=== PATIENT | female | born 1950 | race Caucasian/White ===

== ENCOUNTER → 2017-05-10 | Outpatient (CLI) | payer MEDICARE, OTHER ==
--- NOTE | 2017-05-10 19:22 | XR ---
EXAMINATION TYPE: XR abdomen 1V DATE OF EXAM: 05/10/2017 COMPARISON: 11/04/2016 HISTORY: Constipation TECHNIQUE: 2 views FINDINGS: There is no sign of intestinal obstruction or pneumoperitoneum. There is mild retained feca l material in the colon. There are no pathologic calcifications over the kidneys. I see no sign of a mass. IMPRESSION: Mild constipation similar to old exam. No free air.
== END ==
LOC: RADXRMAIN 17:36
PROVIDERS: ATTEND Internal Medicine
DX: K59.00 Constipation, unspecified (principal)
CPT/HCPCS: 74000

== ENCOUNTER → 2017-06-07 | Outpatient (CLI) | payer MEDICARE, OTHER ==
[2017-06-07 16:22] LABS: Blood Urea Nitrogen 18 mg/dL (7-17); Non-African American GFR(MDRD) >60 (>60 ml/min/1.73 sqM)
--- NOTE | 2017-06-08 07:33 | CT ---
EXAMINATION TYPE: CT angio head neck DATE OF EXAM: 06/07/2017 COMPARISON: NONE HISTORY: Episodes of Entire right side body weakness CT DLP: 429 mGycm CONTRAST: Performed with IV Contrast, patient injected with 65 mL of Omnipaque 350. Combination Contrast CTA cervical carotids and [place] CTA cervical carotids with 3-D recons truction Contrast CTA of the cervical carotids was performed 3-D reconstruction imaging obtained at a separate workstation. Right carotid system: Mild plaque is seen of the right common carotid artery. There is mild plaque a lso noted at the carotid bulb and proximal ICA. No significant diameter reduction. ECA is patent. Right vertebral artery appears unremarkable. Left carotid system: Mild plaque is seen of the left common carotid artery. There is mild plaque als o noted at the carotid bulb and proximal ICS. No significant diameter reduction. ECA is patent. Lef t vertebral artery appears unremarkable. Incidental subcentimeter nodule left thyroid lobe. IMPRESSION: 1. No significant diameter reduction to account for the patient's symptoms. CTA [place] with 3-D reconstruction Contrast CTA of the [place] was performed 3-D reconstruction imaging obtained at a separate workstation. Vertebrobasilar system as well as intracranial portions of the internal carotid arteries and their ma braxton tributaries are patent. I do not see evidence for sizable aneurysm or vascular malformation. Pl ease note MRI provides greater sensitivity and specificity. Visualized brain appears grossly unremar kable. IMPRESSION: 1. No siginificant abnormality.
== END | disposition home or self-care (01) ==
LOC: RADCTMAIN 15:44
PROVIDERS: ATTEND Internal Medicine
DX: R20.9 Unspecified disturbances of skin sensation (principal)
CPT/HCPCS: 82565; 84520; 70496; 70498; 36415; Q9967

== ENCOUNTER → 2017-07-28 | Outpatient (CLI) | payer MEDICARE, OTHER ==
--- NOTE | 2017-07-29 08:13 | MM ---
Reason for exam: screening (asymptomatic). Last mammogram was performed 1 year and 1 month ago. History: Patient is postmenopausal. Family history of breast cancer in paternal grandmother at age 90. Benign ultrasound-guided core biopsy of the right breast, April 07, 2005. Cyst aspiration of the right breast. Core biopsy of the right breast. 2 excisional biopsies of the left breast. Excisional biopsy of the right breast. Took estrogen for 6 months. Took progesterone for 1 year beginning at age 60. Physical Findings: A clinical breast exam by your physician is recommended on an annual basis and results should be correlated with mammographic findings. MG 3D Screening Mammo W/Cad Bilateral CC and MLO view(s) were taken. Prior study comparison: June 22, 2016, bilateral MG 3d diag mammo w/cad ROSAS. June 10, 2015, bilateral MG diagnostic mammo w CAD ROSAS. The breast tissue is heterogeneously dense. This may lower the sensitivity of mammography. Finding: There are stable typically benign calcifications. No significant changes in finding since June 22, 2016 and June 10, 2015. ASSESSMENT: Benign, BI-RAD 2 RECOMMENDATION: Routine screening mammogram of both breasts in 1 year.
== END | disposition home or self-care (01) ==
LOC: RADMAMWWP 10:07
PROVIDERS: ATTEND Obstetrics & Gynecology
DX: Z12.31 Encounter for screening mammogram for malignant neoplasm of breast (principal)
CPT/HCPCS: 77063; G0202

== ENCOUNTER → 2018-04-26 | Outpatient (CLI) | payer MEDICARE, OTHER ==
--- NOTE | 2018-04-26 16:26 | XR ---
Lumbar spine HISTORY: Low back pain, numbness in feet 3 views of the lumbar spine correlated to CT 09/09/2017 Lumbar vertebral bodies show preserved height and alignment. Mild spinal curvature may be positional. There is multilevel spondylosis. Anterolisthesis grade 1 L3-4, only 4 nonrib-bearing vertebral refugio s are present in the lumbar spine. Sclerosis present in the posterior elements of the lower lumbar sp ine. Loss of disc height at the intervertebral levels is noted with associated vacuum phenomenon at m ultiple levels. Vascular calcifications noted incidentally. IMPRESSION: Degenerative disc disease, facet arthropathy, spinal curvature. Correlate with plain film prior to any intervention.
== END ==
LOC: RADXRMAIN 15:20
PROVIDERS: ATTEND Internal Medicine
DX: M51.36 Other intervertebral disc degeneration, lumbar region (principal); M46.96 Unspecified inflammatory spondylopathy, lumbar region; M43.9 Deforming dorsopathy, unspecified
CPT/HCPCS: 72100

== ENCOUNTER → 2018-08-24 | Outpatient (CLI) | payer MEDICARE, OTHER ==
--- NOTE | 2018-08-24 14:40 | MM ---
Reason for exam: screening (asymptomatic). Last mammogram was performed 1 year and 1 month ago. History: Patient is postmenopausal. Family history of breast cancer in paternal grandmother at age 90. Benign ultrasound-guided core biopsy of the right breast, April 07, 2005. Cyst aspiration of the right breast. Core biopsy of the right breast. 2 excisional biopsies of the left breast. Excisional biopsy of the right breast. Took estrogen for 6 months. Took progesterone for 1 year beginning at age 60. Physical Findings: A clinical breast exam by your physician is recommended on an annual basis and results should be correlated with mammographic findings. MG 3D Screening Mammo W/Cad Bilateral CC and MLO view(s) were taken. Prior study comparison: July 28, 2017, bilateral MG 3d screening mammo w/cad. June 22, 2016, bilateral MG 3d diag mammo w/cad ROSAS. The breast tissue is heterogeneously dense. This may lower the sensitivity of mammography. There are benign appearing stable bilateral round oval circumscribed masses. There are benign appearing round calcifications bilaterally. No suspicious abnormality. ASSESSMENT: Benign, BI-RAD 2 RECOMMENDATION: Routine screening mammogram of both breasts in 1 year.
== END | disposition home or self-care (01) ==
LOC: RADMAMWWP 10:37
PROVIDERS: ATTEND Obstetrics & Gynecology
DX: Z12.31 Encounter for screening mammogram for malignant neoplasm of breast (principal); Z80.3 Family history of malignant neoplasm of breast
CPT/HCPCS: 77063; 77067

== ENCOUNTER → 2018-10-27 | Outpatient (CLI) | payer MEDICARE, OTHER ==
--- NOTE | 2018-10-27 14:07 | BD ---
EXAMINATION TYPE: Axial Bone Density DATE OF EXAM: 10/27/2018 COMPARISON: NONE CLINICAL HISTORY: Height: 60.5 Weight: 139.1 FRAX RISK QUESTIONS: Alcohol (3 or more units per day): no Family History (Parent hip fracture): no Glucocorticoids (More than 3mos): no (Ex: prednisone, prednisolone, methylprednisolone, dexamethasone, and hydrocortisone). History of Fracture in Adulthood: no Secondary Osteoporosis: 1. Type 1 Diabetes: no 2. Hyperthyroidism: no 3. Menopause before 45: yes 4. Malnutrition: no 5. Chronic liver disease: no Rheumatoid Arthritis: no Current Tobacco Use: no RISK FACTORS HISTORY OF: Family History of Osteoporosis: yes Active: yes Diet low in dairy products/other sources of calcium: no Postmenopausal woman: age 54-hysterectomy Lost more than 2 inches in height since high school: no MEDICATIONS: amlodipine, lipitor, ambient, vitamins, pro-biotics Additional History: EXAM MEASUREMENTS: Bone mineral densitometry was performed using the [employer]. Bone mineral density as measured about the Lumbar spine is: ----- L1-L4(G/cm2): 1.102 T Score Values are as follows: ----- L2: -1.1 ----- L3: -0.3 ----- L4: 0.0 ----- L1-L4: -0.6 Bone mineral density has: decreased -5.4 % since study of: 06.10.2015 Bone mineral density about the R hip (g/cm2): 0.761 Bone mineral density about the L hip (g/cm2): 0.768 T Score values are as follows: -----R Neck: -2.0 -----L Neck: -1.9 -----R Total: -0.9 -----L Total: -0.9 Bone mineral density has: decreased -3.6 % since study of: 06.10.2015 IMPRESSION: Osteopenia (T Score between -2.5 and -1) femoral neck level in both hips. There is slightly increased risk of fracture and the patient may be considered for treatment. Re-Screen 2-5 years. NOTE: T-SCORE=SD OF THE YOUNG ADULT MEAN.
== END ==
LOC: RADBDWWP 09:00
PROVIDERS: ATTEND Obstetrics & Gynecology
DX: M85.851 Other specified disorders of bone density and structure, right thigh (principal); M85.852 Other specified disorders of bone density and structure, left thigh
CPT/HCPCS: 77080

== ENCOUNTER → 2019-02-13 | Outpatient (CLI) | payer MEDICARE, OTHER ==
--- NOTE | 2019-02-13 14:14 | XR ---
EXAMINATION TYPE: XR chest 2V DATE OF EXAM: 02/13/2019 COMPARISON: NONE TECHNIQUE: PA and lateral views submitted. HISTORY: Cough FINDINGS: The lungs are clear and there is no pneumothorax, pleural effusion, or focal pneumonia. Hypertrophi c and degenerative change of the spine. Postsurgical change involving the shoulders. Biapical pleural thickening. IMPRESSION: 1. No acute process.
== END ==
LOC: RADXRMAIN 13:56
PROVIDERS: ATTEND Internal Medicine
DX: R05 Cough (principal)
CPT/HCPCS: 71046

== ENCOUNTER → 2019-02-23 | Outpatient (CLI) | payer MEDICARE, OTHER ==
--- NOTE | 2019-02-23 10:08 | US ---
EXAMINATION TYPE: US abdomen complete DATE OF EXAM: 02/23/2019 COMPARISON: NONE CLINICAL HISTORY: R94.5 Abnormal results of liver function studies. abn labs, npo EXAM MEASUREMENTS: Liver Length: 15.5 cm Gallbladder Wall: 0.1 cm CBD: 0.4 cm CHD: 0.5 cm Spleen: 7.4 cm Right Kidney: 9.5 x 4.8 x 3.4 cm Left Kidney: 9.9 x 5.1 x 5.1 cm Pancreas: appears echogenic in appearance, tail not well visualized due to overlying bowel gas Liver: Appears echogenic, coarse and heterogenous Gallbladder: wnl Evidence for sonographic Gambino's sign: neg CBD: wnl CHD: wnl Spleen: wnl Right Kidney: wnl Left Kidney: wnl Upper IVC: wnl Abd Aorta: no AAA visualized IMPRESSION: 1. Liver appears somewhat coarsened and echogenic this is a nonspecific finding can be seen with hepa titis, diffuse hepatocellular disease or hepatic steatosis.
== END | disposition home or self-care (01) ==
LOC: RADUSWWP 08:48
PROVIDERS: ATTEND Internal Medicine
DX: R94.5 Abnormal results of liver function studies (principal)
CPT/HCPCS: 76700

== ENCOUNTER → 2019-02-28 | Outpatient (CLI) | payer MEDICARE, OTHER ==
--- NOTE | 2019-02-28 13:09 | XR ---
EXAMINATION TYPE: XR clavicle LT DATE OF EXAM: 02/28/2019 COMPARISON: NONE HISTORY: Pain TECHNIQUE: 2 views submitted FINDINGS: Postsurgical changes suggestive of previous rotator cuff repair. Arthropathy of the AC join t. No acute fracture or dislocation. IMPRESSION: Postsurgical changes with AC joint arthropathy.
--- NOTE | 2019-02-28 13:11 | XR ---
EXAMINATION TYPE: XR ribs LT DATE OF EXAM: 02/28/2019 COMPARISON: NONE HISTORY: Pain TECHNIQUE: 4 views submitted FINDINGS: Arthropathy of the AC joint postsurgical change involving the shoulder. Visualized osseous structures grossly intact. IMPRESSION: No acute displaced rib fracture.
== END ==
LOC: RADXRMAIN 12:36
PROVIDERS: ATTEND Internal Medicine
DX: M12.812 Other specific arthropathies, not elsewhere classified, left shoulder (principal); R29.6 Repeated falls; Z98.890 Other specified postprocedural states

== ENCOUNTER → 2019-03-06 | Outpatient (CLI) | payer MEDICARE, OTHER ==
--- NOTE | 2019-03-07 08:58 | MM ---
Reason for exam: clinical finding. Last mammogram was performed 6 months ago. History: Patient is postmenopausal. Family history of breast cancer in paternal grandmother at age 90. Benign ultrasound-guided core biopsy of the right breast, April 07, 2005. Cyst aspiration of the right breast. Core biopsy of the right breast. 2 excisional biopsies of the left breast. Excisional biopsy of the right breast. Took estrogen for 6 months. Took progesterone for 1 year beginning at age 60. Physical Findings: Nurse did not find any significant physical abnormalities on exam. MG 3D Diag Mammo W/Cad RT CC and ML view(s) were taken of the right breast. Prior study comparison: August 24, 2018, bilateral MG 3d screening mammo w/cad. July 28, 2017, bilateral MG 3d screening mammo w/cad. The breast tissue is heterogeneously dense. This may lower the sensitivity of mammography. There is chronic nodularity in the right breast. These results were verbally communicated with the patient and result sheet given to the patient on 03/06/19. ASSESSMENT: Probably benign, BI-RAD 3 RECOMMENDATION: Ultrasound of the right breast. Manage on a clinical basis with regard to palpable abnormality in right breast. Follow-up diagnostic mammogram of both breasts in 6 months. Back on schedule for August 2019.
--- NOTE | 2019-03-07 08:59 | USB ---
Reason for exam: clinical finding. History: Patient is postmenopausal. Family history of breast cancer in paternal grandmother at age 90. Benign ultrasound-guided core biopsy of the right breast, April 07, 2005. Cyst aspiration of the right breast. Core biopsy of the right breast. 2 excisional biopsies of the left breast. Excisional biopsy of the right breast. Took estrogen for 6 months. Took progesterone for 1 year beginning at age 60. US Breast RT Right complete breast ultrasound includes all four quadrants, the retroareolar region and axilla. Finding demonstrates a 6 x 4 x 7mm oval, cystic lesion at 2 o'clock and a 3 x 3 x 3mm oval, cystic lesion at 11 o'clock. These results were verbally communicated with the patient and result sheet given to the patient on 03/06/19. ASSESSMENT: Probably benign, BI-RAD 3 RECOMMENDATION: Ultrasound of the right breast in 6 months.
== END ==
LOC: RADMAMWWP 12:52
PROVIDERS: ATTEND Family Medicine
DX: N63.10 Unspecified lump in the right breast, unspecified quadrant (principal); N64.4 Mastodynia
CPT/HCPCS: 77065; 76641; G0279; 77061

== ENCOUNTER → 2019-03-10 | Outpatient (CLI) | payer MEDICARE, OTHER ==
--- NOTE | 2019-03-15 10:12 | P.ARTDOP ---
Arterial Doppler LOWER EXTREMITY ARTERIAL DOPPLER: DATE OF SERVICE: 03/10/2019 Reason for study: Bilateral leg pain. Doppler waveforms: Multiphasic bilaterally throughout. Pulse volume recording: []. Pressure gradients: Mild gradient across the knee on the right. Ankle-brachial indices: Greater than 1 on the left and 0.83 on the right. Toe pressures: [] on the right, [] on the left Impression: Normal study on the left with possible mild right SFA disease. Does not correlate as a cause for patient's symptoms..
== END | disposition home or self-care (01) ==
LOC: RADUSWWP 12:06
PROVIDERS: ATTEND Internal Medicine
DX: I73.9 Peripheral vascular disease, unspecified (principal)
CPT/HCPCS: 93923

== ENCOUNTER → 2019-04-17 | Outpatient (CLI) | payer MEDICARE, OTHER ==
--- NOTE | 2019-04-18 11:27 | MM ---
Reason for exam: clinical finding. Last mammogram was performed 1 month ago. History: Patient is postmenopausal. Family history of breast cancer in paternal grandmother at age 90. Benign ultrasound-guided core biopsy of the right breast, April 07, 2005. Cyst aspiration of the right breast. Core biopsy of the right breast. 2 excisional biopsies of the left breast. Excisional biopsy of the right breast. Took estrogen for 6 months. Took progesterone for 1 year beginning at age 60. Physical Findings: Nurse did not find any significant physical abnormalities on exam. MG 3D Diag Mammo W/Cad LT CC, MLO, and XCCL view(s) were taken of the left breast. Prior study comparison: March 06, 2019, right breast MG 3d diag mammo w/cad RT. August 24, 2018, bilateral MG 3d screening mammo w/cad. The breast tissue is heterogeneously dense. This may lower the sensitivity of mammography. Post therapy change on the left. These results were verbally communicated with the patient and result sheet given to the patient on 04/17/19. ASSESSMENT: Incomplete: need additional imaging evaluation, BI-RAD 0 RECOMMENDATION: Ultrasound of the left breast. (for pain lateral left breast)
--- NOTE | 2019-04-18 11:29 | USB ---
Reason for exam: additional evaluation requested from abnormal screening. History: Patient is postmenopausal. Family history of breast cancer in paternal grandmother at age 90. Benign ultrasound-guided core biopsy of the right breast, April 07, 2005. Cyst aspiration of the right breast. Core biopsy of the right breast. 2 excisional biopsies of the left breast. Excisional biopsy of the right breast. Took estrogen for 6 months. Took progesterone for 1 year beginning at age 60. US Breast Limited LT Left limited breast ultrasound including focal area of concern, retroareolar and axilla demonstrates a 1.0 x 1.2 x 0.5cm oval node, benign appearing at the axilla. [place] of dense tissue noted. No suspicious finding. These results were verbally communicated with the patient and result sheet given to the patient on 04/17/19. ASSESSMENT: Benign, BI-RAD 2 RECOMMENDATION: Follow-up diagnostic mammogram of both breasts in 4 months. Back on schedule for August 2019.
== END | disposition home or self-care (01) ==
LOC: RADMAMWWP 11:24
PROVIDERS: ATTEND Family Medicine
DX: N63.20 Unspecified lump in the left breast, unspecified quadrant (principal); R92.8 Other abnormal and inconclusive findings on diagnostic imaging of breast
CPT/HCPCS: 77065; 76642; G0279; 77061

== ENCOUNTER → 2019-08-29 | Outpatient (CLI) | payer MEDICARE, OTHER ==
--- NOTE | 2019-08-29 12:00 | MM ---
Reason for exam: follow-up at short interval from prior study. Last mammogram was performed 4 months ago. History: Patient is postmenopausal. Family history of breast cancer in paternal grandmother at age 90. Benign ultrasound-guided core biopsy of the right breast, April 07, 2005. Cyst aspiration of the right breast. Core biopsy of the right breast. 2 excisional biopsies of the left breast. Excisional biopsy of the right breast. Took estrogen for 6 months. Took progesterone for 1 year beginning at age 60. Physical Findings: Nurse Summary: 1cm nodule in the right breast at 11 o'clock and a 1cm nodule in the left breast at 9 o'clock (nurse TM). MG 3D Diag Mammo W/Cad ROSAS Bilateral CC and MLO view(s) were taken. Prior study comparison: April 17, 2019, left breast MG 3d diag mammo w/cad LT. March 06, 2019, right breast MG 3d diag mammo w/cad RT. August 24, 2018, bilateral MG 3d screening mammo w/cad. July 28, 2017, bilateral MG 3d screening mammo w/cad. June 22, 2016, bilateral MG 3d diag mammo w/cad ROSAS. The breast tissue is heterogeneously dense. This may lower the sensitivity of mammography. There is a 4mm mass right upper outer quadrant middle depth 4cm from nipple stable from prior other right upper inner quadrant circumscribed masses are stable back to 2016. Left upper inner quadrant 5 x 4mm mass at middle depth on CC 47/58 and MLO 14/72. Post excisional change bilaterally. These results were verbally communicated with the patient and result sheet given to the patient on 08/29/19. ASSESSMENT: Incomplete: need additional imaging evaluation, BI-RAD 0 RECOMMENDATION: Ultrasound of both breasts.
--- NOTE | 2019-08-29 12:04 | USB ---
Reason for exam: additional evaluation requested from prior study. History: Patient is postmenopausal. Family history of breast cancer in paternal grandmother at age 90. Benign ultrasound-guided core biopsy of the right breast, April 07, 2005. Cyst aspiration of the right breast. Core biopsy of the right breast. 2 excisional biopsies of the left breast. Excisional biopsy of the right breast. Took estrogen for 6 months. Took progesterone for 1 year beginning at age 60. US Breast BILAT Right complete breast ultrasound includes all four quadrants, the retroareolar region and axilla. Finding demonstrates a 0.2 x 0.1 x 0.2cm calcification at 2 o'clock, a 0.6 x 0.4 x 0.7cm mixed lesion at 2 o'clock, corresponds with mammogram, complicated cyst, a 0.4 x 0.3 x 0.5cm lesion too small to characterize at 10 o'clock and a 0.2 x 0.1 x 0.2cm lesion too small to characterize at 11 o'clock. Left complete breast ultrasound includes all four quadrants, the retroareolar region and axilla. Finding demonstrates a 0.3 x 0.3 x 0.4cm lesion too small to characterize at 8 o'clock and a 0.5 x 0.3 x 0.4cm mixed lesion at 11 o'clock, solid, biopsy recommended, corresponds with mammogram. These results were verbally communicated with the patient and result sheet given to the patient on 08/29/19. ASSESSMENT: Suspicious, BI-RAD 4 RECOMMENDATION: Ultrasound core biopsy of the left breast. (11 o'clock) Called office with mammographic findings and has scheduled an appointment for the patient for 09/26/19 at 9:[address] Lucas. Biopsy scheduled for 09/19/19 at 12:20. PRELIMINARY REPORT CALLED AND FAXED TO DR. LUCAS ON 08/29/19.
== END | disposition home or self-care (01) ==
LOC: RADMAMWWP 09:35
PROVIDERS: ATTEND Family Medicine
DX: R92.8 Other abnormal and inconclusive findings on diagnostic imaging of breast (principal)
CPT/HCPCS: 77066; 76641; G0279; 77062

== ENCOUNTER → 2019-09-19 | Day surgery (SDC) | payer MEDICARE, OTHER ==
[2019-09-19 11:56] VITALS: RESP 12; TEMP 98.2
[2019-09-19 12:48] VITALS: BP 145/87; PULSE 77
--- NOTE | 2019-09-19 12:56 | USB ---
EXAMINATION TYPE: US biopsy breast VAD LT, MG diagnostic mammo LT wo CAD DATE OF EXAM: 09/19/2019 CLINICAL HISTORY: R92.8 ABN MAMMO. Abnormal ultrasound TECHNIQUE: Ultrasound guided core biopsy of left breast with clip placement and follow-up diagnostic two-view mammogram. COMPARISON: Prior ultrasound and mammogram August 29, 2019 and older studies. FINDINGS: The procedure of ultrasound guided core biopsy was explained to the patient. Benefits, alternatives, and risks were discussed. An informed consent was then obtained. The patient was placed in supine positioning for imaging and for the procedure. Preprocedure ultrasound redemonstrates 4-5 mm oval well-circumscribed hypoechoic lesion 11:00 position left breast. The overlying skin was prepped and draped in usual sterile fashion. Lidocaine is used as anesthetic into the skin and subcutaneous tissue up to area of concern in the left breast. Lidocaine with epinephrine is used as anesthetic to the deeper tissue. Under ultrasound guidance, a 12-gauge vacuum assisted biopsy gun device was used to obtain 4 core samples. Following this, a biopsy clip was left at the site lesion was felt present. The patient tolerated the procedure well without any immediate complication. The patient was kept in the radiology department for short stay after the procedure and then discharged home in stable condition. Postprocedure mammogram shows clip to believed to correspond to lesions seen best on CC projection. IMPRESSION: Successful, uncomplicated ultrasound guided core biopsy of area of concern in the left breast, full pathology results to follow. Low index of suspicion noted at time of procedure. Pathology Results: Benign LEFT BREAST, 11:00, ULTRASOUND GUIDED CORE BIOPSY: Nodular scar with fat necrosis, inflammation and features suggestive of attenuated cyst wall. Negative for malignancy. Recommendation Follow up ultrasound of the left breast in 6 months. MARYJOD
== END ==
LOC: RADUSWWP 11:15
PROVIDERS: ATTEND Family Medicine
DX: N64.1 Fat necrosis of breast (principal); L90.5 Scar conditions and fibrosis of skin; R92.8 Other abnormal and inconclusive findings on diagnostic imaging of breast; Z88.5 Allergy status to narcotic agent; Z88.2 Allergy status to sulfonamides
CPT/HCPCS: 88305; 77065; 19083; A4648; J2001

== ENCOUNTER 2020-04-19 12:31 | Emergency (ER) | payer MEDICARE, OTHER ==
[2020-04-19] MEDS ORDERED: SODIUM CHLORIDE 0.9% 1,000 ML IV STA (13:01)
--- NOTE | 2020-04-19 13:11 | ED ---
General Adult HPI - General Chief complaint: Fever Stated complaint: Fever,body aches, nausea Time Seen by Provider: 04/19/20 12:39 Source: patient, RN notes reviewed Mode of arrival: ambulatory Limitations: no limitations - History of Present Illness Initial comments: 69-year-old female with a past medical history of hyperlipidemia, hypertension presents to the emergency department for a complete a fever. Patient states she has had body aches for about 3 days. States that today she checked her temperature and it was T max 100.4. Patient that she called her doctor and they did not want to see her in the office because of the fever so sent her to the emergency room. Patient has many vague symptoms. These include body aches throughout her whole body. Patient admits to slight dry cough as well as slight sore throat. Patient admits to mild abdominal pain for the past couple weeks. Denies nausea or vomiting.Patient has no other complaints at this time including shortness of breath, chest pain, nausea or vomiting, headache, or visual kaylynn nges. - Related Data Home Medications Medication Instructions Recorded Confirmed Latanoprost Ophth [Xalatan 0.005%] 1 drops BOTH EYES HS 10/16/15 09/19/19 amLODIPine [Norvasc] 5 mg PO DAILY 10/16/15 09/19/19 Atorvastatin [Lipitor] 10 mg PO DAILY 08/31/19 09/19/19 Simvastatin 40 mg PO DAILY 08/31/19 09/19/19 Zolpidem [Ambien] 5 mg PO HS PRN 08/31/19 09/19/19 Allergies Allergy/AdvReac Type Severity Reaction Status Date / Time hydromorphone HCl Allergy Nausea & Verified 04/19/20 12:38 [From Dilaudid] Vomiting sulfamethoxazole Allergy Rash/Hives Verified 04/19/20 12:38 [From Bactrim] trimethoprim [From Bactrim] Allergy Rash/Hives Verified 04/19/20 12:38 Review of Systems ROS Statement: Those systems with pertinent positive or pertinent negative responses have been documented in the HPI. ROS Other: All systems not noted in ROS Statement are negative. Past Medical History Past Medical History: Hyperlipidemia, Hypertension Additional Past Medical History / Comment(s): pneumothorax History of Any Multi-Drug Resistant Organisms: None Reported Past Surgical History: Breast Surgery, Hysterectomy, Orthopedic Surgery Additional Past Surgical History / Comment(s): Rectocele, cystocele. Hx. Benign excisional bx bilateral breasts, core bx, cyst aspirations Past Anesthesia/Blood Transfusion Reactions: Previous Problems w/ Anesthesia, Postoperative Nausea & Vomiting (PONV) Past Psychological History: No Psychological Hx Reported Smoking Status: Never smoker Past Alcohol Use History: Daily, Occasional Past Drug Use History: None Reported General Exam Limitations: no limitations General appearance: alert, in no apparent distress Head exam: Present: atraumatic, normocephalic, normal inspection Eye exam: Present: normal appearance, PERRL, EOMI. Absent: scleral icterus, conjunctival injection, periorbital swelling ENT exam: Present: normal exam, mucous membranes moist Neck exam: Present: normal inspection, full ROM. Absent: tenderness, meningismus, lymphadenopathy Respiratory exam: Present: normal lung sounds bilaterally. Absent: respiratory distress, wheezes, rales, rhonchi, stridor Cardiovascular Exam: Present: regular rate, normal rhythm, normal heart sounds. Absent: systolic murmur, diastolic murmur, rubs, gallop, clicks GI/Abdominal exam: Present: soft, tenderness (Mild tenderness left lower quadrant), normal bowel sounds. Absent: distended, guarding, rebound, rigid Neurological exam: Present: alert Course Vital Signs 04/19/20 04/19/20 12:34 14:31 Temperature 99.6 F 98.5 F Pulse Rate 94 88 Respiratory 18 17 Rate Blood Pressure 152/88 140/87 O2 Sat by Pulse 98 98 Oximetry Medical Decision Making - Medical Decision Making Vitals are stable. Patient has been afebrile throughout her stay in the emergency room. She did not take Motrin or Tylenol today and was not given Motrin or Tylenol in the emergency room. Physical exam does reveal minimal left lower quadrant tenderness without any other abdominal tenderness. No neck stiffness or headache. Full range motion of all limbs. No rashes. CBC CMP unremarkable. Urinalysis does not show any evidence of infection. Chest x-ray shows no acute process. CT abdomen and pelvis with contrast shows colonic diverticulosis without evidence of diverticulitis. No significant new or acute findings to account for patient's clinical symptoms. Patient was given fluids and morphine and is feeling somewhat better although still achy all over. Patient does not have any specific symptoms besides achiness in pain all over. At this time patient is stable for discharge home however I did discuss strep return parameters. Blood culture and coronavirus are pending. Patient is agreeable to return if she has any worsening symptoms. - Lab Data Result diagrams: 04/19/20 14:15 04/19/20 14:15 Lab Results 04/19/20 04/19/20 04/19/20 Range/Units 14:15 14:15 14:15 WBC 10.6 (3.8-10.6) k/uL RBC 4.46 (3.80-5.40) m/uL Hgb 14.0 (11.4-16.0) gm/dL Hct 41.2 (34.0-46.0) % MCV 92.3 (80.0-100.0) fL MCH 31.4 (25.0-35.0) pg MCHC 34.0 (31.0-37.0) g/dL RDW 12.4 (11.5-15.5) % Plt Count 242 (150-450) k/uL Neutrophils % 88 % Lymphocytes % 7 % Monocytes % 3 % Eosinophils % 1 % Basophils % 1 % Neutrophils # 9.2 H (1.3-7.7) k/uL Lymphocytes # 0.7 L (1.0-4.8) k/uL Monocytes # 0.3 (0-1.0) k/uL Eosinophils # 0.1 (0-0.7) k/uL Basophils # 0.1 (0-0.2) k/uL Sodium 139 (137-145) mmol/L Potassium 4.7 (3.5-5.1) mmol/L Chloride 106 (98-107) mmol/L Carbon Dioxide 23 (22-30) mmol/L Anion Gap 10 mmol/L BUN 14 (7-17) mg/dL Creatinine 0.67 (0.52-1.04) mg/dL Est GFR (CKD-EPI)AfAm >90 (>60 ml/min/1.73 sqM) Est GFR (CKD-EPI)NonAf 90 (>60 ml/min/1.73 sqM) Glucose 138 H (74-99) mg/dL Plasma Lactic Acid Jhoan 1.1 (0.7-2.0) mmol/L Calcium 9.7 (8.4-10.2) mg/dL Total Bilirubin 0.5 (0.2-1.3) mg/dL AST 25 (14-36) U/L ALT 19 (4-34) U/L Alkaline Phosphatase 78 (38-126) U/L Total Protein 7.5 (6.3-8.2) g/dL Albumin 4.8 (3.5-5.0) g/dL Urine Color Urine Appearance (Clear) Urine pH (5.0-8.0) Ur Specific Alleman (1.001-1.035) Urine Protein (Negative) Urine Glucose (UA) (Negative) Urine Ketones (Negative) Urine Blood (Negative) Urine Nitrite (Negative) Urine Bilirubin (Negative) Urine Urobilinogen (<2.0) mg/dL Ur Leukocyte Esterase (Negative) 04/19/20 Range/Units 14:15 WBC (3.8-10.6) k/uL RBC (3.80-5.40) m/uL Hgb (11.4-16.0) gm/dL Hct (34.0-46.0) % MCV (80.0-100.0) fL MCH (25.0-35.0) pg MCHC (31.0-37.0) g/dL RDW (11.5-15.5) % Plt Count (150-450) k/uL Neutrophils % % Lymphocytes % % Monocytes % % Eosinophils % % Basophils % % Neutrophils # (1.3-7.7) k/uL Lymphocytes # (1.0-4.8) k/uL Monocytes # (0-1.0) k/uL Eosinophils # (0-0.7) k/uL Basophils # (0-0.2) k/uL Sodium (137-145) mmol/L Potassium (3.5-5.1) mmol/L Chloride (98-107) mmol/L Carbon Dioxide (22-30) mmol/L Anion Gap mmol/L BUN (7-17) mg/dL Creatinine (0.52-1.04) mg/dL Est GFR (CKD-EPI)AfAm (>60 ml/min/1.73 sqM) Est GFR (CKD-EPI)NonAf (>60 ml/min/1.73 sqM) Glucose (74-99) mg/dL Plasma Lactic Acid Jhoan (0.7-2.0) mmol/L Calcium (8.4-10.2) mg/dL Total Bilirubin (0.2-1.3) mg/dL AST (14-36) U/L ALT (4-34) U/L Alkaline Phosphatase (38-126) U/L Total Protein (6.3-8.2) g/dL Albumin (3.5-5.0) g/dL Urine Color Yellow Urine Appearance Clear (Clear) Urine pH 7.0 (5.0-8.0) Ur Specific Alleman 1.013 (1.001-1.035) Urine Protein Negative (Negative) Urine Glucose (UA) Negative (Negative) Urine Ketones Negative (Negative) Urine Blood Negative (Negative) Urine Nitrite Negative (Negative) Urine Bilirubin Negative (Negative) Urine Urobilinogen <2.0 (<2.0) mg/dL Ur Leukocyte Esterase Negative (Negative) Disposition Clinical Impression: Generalized body aches Disposition: HOME SELF-CARE Condition: Good Instructions (If sedation given, give patient instructions): Fever in Adults (ED) Additional Instructions: Please take Motrin and Tylenol for body aches/fever. Follow-up with primary care in 1-2 days. Follow up on culture results. If you have any worsening symptoms such as worsening pain return here to the emergency room. Is patient prescribed a controlled substance at d/c from ED?: No Referrals: Hui Macias MD [Primary Care Provider] - 1-2 days Time of Disposition: 16:03
[2020-04-19] MEDS ORDERED: HYDROmorphone 0.5 MG/0.5 ML SYRINGE IVP STA (14:18)
[2020-04-19] MEDS ORDERED: ONDANSETRON 4 MG/2 ML VIAL IVP STA (14:18)
[2020-04-19 14:32] VITALS: BP 140/87; PULSE 88; RESP 17; TEMP 98.5
[2020-04-19 14:39] LABS: Basophils # (A) 0.1 k/uL (0-0.2); Basophils % (A) 1 %; Eosinophils # (A) 0.1 k/uL (0-0.7); Eosinophils % (A) 1 %; HCT 41.2 % (34.0-46.0); Lymphocytes # (A) 0.7 k/uL (1.0-4.8); Lymphocytes % (A) 7 %; MCH 31.4 pg (25.0-35.0); MCV 92.3 fL (80.0-100.0); Mean Platelet Volume 6.9; Monocytes # (A) 0.3 k/uL (0-1.0); Monocytes % (A) 3 %; Neutrophils # (A) 9.2 k/uL (1.3-7.7); Neutrophils % (A) 88 %; Platelet Count 242 k/uL (150-450); RBC 4.46 m/uL (3.80-5.40); RDW 12.4 % (11.5-15.5); WBC 10.6 k/uL (3.8-10.6)
[2020-04-19 14:45] LABS: Appearance,Urine Clear (Clear); Bilirubin,Urine Negative (Negative); Blood,Urine Negative (Negative); Color,Urine Yellow; Glucose,Urine (UA) Negative (Negative); Ketones,Urine Negative (Negative); Leukocyte Esterase,Urine Negative (Negative); Nitrite,Urine Negative (Negative); Protein,Urine Negative (Negative); Specific Gravity,Urine 1.013 (1.001-1.035); Urobilinogen,Urine <2.0 mg/dL (<2.0)
[2020-04-19 14:47] LABS: ALT 19 U/L (4-34); AST 25 U/L (14-36); African American GFR (CKD) >90 (>60 ml/min/1.73 sqM); Albumin 4.8 g/dL (3.5-5.0); Alkaline Phosphatase 78 U/L (38-126); Anion Gap 10 mmol/L; Blood Urea Nitrogen 14 mg/dL (7-17); Calcium 9.7 mg/dL (8.4-10.2); Carbon Dioxide 23 mmol/L (22-30); Chloride 106 mmol/L (98-107); Glucose 138 mg/dL (74-99); Non-African American GFR(CKD) 90 (>60 ml/min/1.73 sqM); Potassium 4.7 mmol/L (3.5-5.1); Sodium 139 mmol/L (137-145); Total Bilirubin 0.5 mg/dL (0.2-1.3); Total Protein 7.5 g/dL (6.3-8.2)
[2020-04-19] MEDS ORDERED: MORPHINE SULFATE 4 MG/ML SYRINGE IVP STA (14:51)
--- NOTE | 2020-04-19 15:01 | XR ---
EXAMINATION TYPE: XR chest 2V DATE OF EXAM: 04/19/2020 COMPARISON: NONE TECHNIQUE: PA and lateral views submitted. HISTORY: Fever FINDINGS: The lungs are clear and there is no pneumothorax, pleural effusion, or focal pneumonia. Postsurgica l change overlying the shoulder biapical pleural thickening. No overt failure. Hypertrophic and degen erative change of the spine. IMPRESSION: 1. No acute process.
--- NOTE | 2020-04-19 15:34 | CT ---
EXAMINATION TYPE: CT abdomen pelvis w con DATE OF EXAM: 04/19/2020 HISTORY: Mid Abdominal pain with fever and bowel changes CT DLP: 711mGycm Automated Exposure Control for Dose Reduction was Utilized. CONTRAST: CT scan of the abdomen and pelvis is performed without oral but with IV Contrast, patient injected wi th 100 mL of Isovue 300. COMPARISON: CT abdomen September 09, 2017 FINDINGS: LUNG BASES: No significant abnormality is appreciated. LIVER/GB: No significant abnormality is appreciated. PANCREAS: No significant abnormality is seen. SPLEEN: No significant abnormality is seen. ADRENALS: Slight nodular thickening left adrenal gland favoring benign lipid rich hyperplasia is stab le. KIDNEYS: No significant abnormality is seen. BOWEL: Slightly suboptimal evaluation of bowel without enteric contrast. Diverticula in the left and sigmoid colon are present. No convincing CT evidence for acute diverticulitis normal-appearing append ix incidentally seen from the cecum in the right upper pelvis. No suspicious small or large bowel dil atation. UTERUS/ADNEXA: Uterus surgically absent or markedly atrophic. LYMPH NODES: No greater than 1cm abdominal or pelvic lymph nodes are appreciated. OSSEOUS STRUCTURES: Multilevel vacuum disc phenomenon and disc space narrowing greatest at L2-L3 and L5-S1 levels. OTHER: Moderate atherosclerotic change in atherosclerotic abdominal aorta. IMPRESSION: Colonic diverticulosis without convincing CT evidence for acute diverticulitis. No signif icant new or acute finding is seen to account for patient's clinical symptoms.
== END 2020-04-19 17:04 | disposition home or self-care (01) ==
LOC: EC 12:31
DX: K57.30 Diverticulosis of large intestine without perforation or abscess without bleeding (principal); R10.814 Left lower quadrant abdominal tenderness; R50.9 Fever, unspecified; R05 Cough; E78.5 Hyperlipidemia, unspecified; I10 Essential (primary) hypertension; Z79.899 Other long term (current) drug therapy; Z88.5 Allergy status to narcotic agent; Z88.2 Allergy status to sulfonamides; Z88.1 Allergy status to other antibiotic agents; Z20.828 Contact with and (suspected) exposure to other viral communicable diseases
CPT/HCPCS: 36415; 80053; 83605; 85025; 81003; 87040; 71046; 74177; 99284; 96374; 96375 ×2; 96361; U0003; J2270; J2405; Q9967

== ENCOUNTER → 2020-04-24 | Outpatient (CLI) | payer MEDICARE, OTHER ==
--- NOTE | 2020-04-25 10:32 | USB ---
Reason for exam: follow-up at short interval from prior study. History: Patient is postmenopausal. Family history of breast cancer in paternal grandmother at age 90. Benign US biopsy breast VAD LT of the left breast, September 19, 2019. Benign ultrasound-guided core biopsy of the right breast, April 07, 2005. Cyst aspiration of the right breast. Core biopsy of the right breast. 2 excisional biopsies of the left breast. Excisional biopsy of the right breast. Took estrogen for 6 months. Took progesterone for 1 year beginning at age 60. Physical Findings: Nurse did not find any significant physical abnormalities on exam. US Breast Limited LT Left limited breast ultrasound including focal area of concern, retroareolar and axilla demonstrates no cystic or solid lesion seen. These results were verbally communicated with the patient and result sheet given to the patient on 04/24/20. ASSESSMENT: Benign, BI-RAD 2 RECOMMENDATION: Routine screening mammogram of both breasts in 4 months. Back on schedule for August 2020.
== END | disposition home or self-care (01) ==
LOC: RADUSWWP 09:28
PROVIDERS: ATTEND Internal Medicine
DX: R92.8 Other abnormal and inconclusive findings on diagnostic imaging of breast (principal)

== ENCOUNTER → 2020-04-24 | Outpatient (CLI) | payer MEDICARE, OTHER ==
[2020-04-24 10:49] VITALS: BP 136/77; PULSE 75; RESP 16
--- NOTE | 2020-04-24 11:43 | P.PAINCN ---
History of Present Illness - Reason for Consult Consult date: 04/24/20 Low back pain Requesting physician: Hui Macias - Chief Complaint Low back pain and right hip pain - History of Present Illness 69-year-old female who presents to [facility] for your in pain clinic at the request of Dr. Macias. She is a chief complaint of low back pain and right hip pain as well as numbness and tingling in her bilateral lower extremities. She's had bilateral lower extremity numbness and tingling for over 5 years. She vaguely recalls having some sort of procedure that did help alleviate some of the pain. She does not recall pros and epidural injection. However acutely over the past few month she's developed pain over her right low back buttock area and at times radiating into her groin and anterior quadricep. She denies any numbness or tingling sensation. Describes it as a throbbing aching pain worse with movement and activity and slightly improved with rest. Pain typically in that area as a 5-7 out of 10 in severity depending on her activity level. She's been taking [id number] Motrin with very minimal relief. With regards to her lower extremity digit numbness and tingling in her right is worse than left. She does not recall any inciting event that led to this issue. She did have a fall some years back where she was hospitalized for multiple rib fractures on her right side. She denies any bowel or bladder incontinence or saddle anesthesia Review of Systems Review of Systems 1. Constitutional: No chills , no fever , no night sweats , no change of appetite, no lethargy 2. Ears: No ear ache, no ear discharge , no change in hearing 3. Nose, Mouth ,Throat; No bleeding gums, no sore throat , no epistaxis , no hoarseness , no voice change 4. Cardiovascular: Denies chest pain, no palpitation , no paroxysmal nocturnal dyspnea , no leg edema 5. Respiratory: Denies cough , no dyspnea , no hemoptysis , no sleep apnea, no wheezing 6. Gastrointestinal: No abdominal pain , no bloating , no change in bowel habits , no coffee-ground emesis , No melena , no jaundice , no nausea , no vomiting 7. Genitourinary: No hematuria , no discharge 8. Musculoskeletal: As per HPI 9. Neurological: No ataxia , no aphasia ,no balance difficulties, no change in visions , no change in speech , no tremor . 10. Psychatric: depression , no suicidal ideation, 11. Hematologic: No easy bleeding, no easy brusing. 12. Integumentary: No brttle nails, no change hair , no hirsutism no depigmentation , no foot/leg ulcers . Past Medical History Past Medical History: Chest Pain / Angina, GERD/Reflux, Hyperlipidemia, Hypertension Additional Past Medical History / Comment(s): fx ribs & pneumothorax(2015 from fall), incontinence stool, diverticulosis, thyroid nodules., hx rich-acuña. , feet fall asleep-mostly left foot and it is painful. History of Any Multi-Drug Resistant Organisms: None Reported Past Surgical History: Breast Surgery, Hysterectomy Additional Past Surgical History / Comment(s): states Hysterectomy with mesh and infection and had to have Rectocele & cystocele at [facility]. Benign excisional bx bilateral breasts, core bx, cyst aspirations, dayami rotator cuff surgery. Past Anesthesia/Blood Transfusion Reactions: Previous Problems w/ Anesthesia, Postoperative Nausea & Vomiting (PONV) Past Psychological History: Anxiety Smoking Status: Never smoker Past Alcohol Use History: Daily Additional Past Alcohol Use History / Comment(s): Pt. states drinks a glass of wine daily with dinner. Past Drug Use History: None Reported - Past Family History Mother Family Medical History: No Reported History Medications and Allergies Home Medications Medication Instructions Recorded Confirmed Type Latanoprost Ophth [Xalatan 0.005%] 1 drops BOTH EYES HS 10/16/15 04/24/20 History amLODIPine [Norvasc] 5 mg PO DAILY 10/16/15 04/24/20 History Simvastatin 40 mg PO PC-LUNCH 08/31/19 04/24/20 History Zolpidem [Ambien] 5 mg PO HS PRN 08/31/19 04/24/20 History Acetaminophen [Tylenol Extra 1,000 mg PO DIRECTED 04/22/20 04/24/20 History Strength] Ascorbic Acid [Vitamin C] 500 mg PO DAILY 04/22/20 04/24/20 History Aspirin/Acetaminophen/Caffeine 1 each PO ONETIME PRN 04/22/20 04/24/20 History [Excedrin Extra Strength Caplet] Cholecalciferol [Vitamin D3 (25 2,000 unit PO DAILY 04/22/20 04/24/20 History Mcg = 1000 Iu)] Ibuprofen 200 mg PO Q8H PRN 04/22/20 04/24/20 History L.acidoph,Paracasei, B.lactis 1 each PO DAILY 04/22/20 04/24/20 History [Probiotic] Lisinopril 20 mg PO DAILY 04/22/20 04/24/20 History Omeprazole 20 mg PO AC-BRKFST 04/22/20 04/24/20 History Ubidecarenone [Co Q-10] 200 mg PO DAILY 04/22/20 04/24/20 History Vitamin E 450 unit PO DAILY 04/22/20 04/24/20 History Allergies Allergy/AdvReac Type Severity Reaction Status Date / Time hydromorphone HCl Allergy Nausea & Verified 04/24/20 10:37 [From Dilaudid] Vomiting sulfamethoxazole Allergy Rash/Hives Verified 04/24/20 10:37 [From Bactrim] trimethoprim [From Bactrim] Allergy Rash/Hives Verified 04/24/20 10:37 Physical Exam Vitals: Vital Signs Pulse Resp BP Pulse Ox 04/24/20 10:39 75 16 136/77 97 Gen: WDWN, AAOx3, NAD HEENT: NCAT, EOMI, hearing grossly normal Pulm: resp unlabored Abd: soft, NT, ND Neck: supple, trachea midline ROM in flexion cervical spine: Normal ROM in extension cervical spine: Normal Cervical paravertebral tenderness: Normal Cervical Facet tenderness: Negative Spurling's: Negative ROM in flexion lumbar spine: No pain with flexion ROM in extension lumbar spine: Pain with extension of -10 Lumbar paravertebral tenderness: Mild tenderness to palpation along the lumbar paraspinal muscles Facet loading: + Right SI joint tenderness: + + Right Umesh's test: + + Right Straight leg raise: Negative bilateral Neuro: 5 out of 5 upper and lower extremity muscle strength in biceps, triceps, deltoid, quadriceps, gastrocnemius. Reflexes intact patellar, tricep, bicep 2 out of 2. Psychiatric: Mood and affect appropriate, negative would L signs Gait: Normal gait, patient transitions with slight pain on the right, no and ambulatory device required. Results Results: MRI lumbar spine: 1. At the L2-3 level there is posterior disc bulge suggestion of a thin broad- based disc herniation. There is 25% impingement upon the neuroforamina bilaterally. 2. At L3 4 there is very mild posterior disc bulge with mild neuroforaminal stenosis bilaterally. At L4-L5 there is grade 1 spondylosis thesis appreciated. With moderate neural foraminal stenosis in the left and mild on the right. 3. At L5-S1 there is a thin broad-based disc herniation slightly more on the left mild neuroforaminal stenosis bilaterally. Assessment and Plan Assessment: 1. Lumbar neural foraminal stenosis 2. Right lumbosacral spondylosis 3. Right sacroiliitis 4. Lumbar spondylosis without myelopathy 5. Lumbar degenerative disc disease Plan: 1. Medication: continue [id number] medication rotating between NSAIDs and acetaminophen. 2. Procedures: I discussed both lumbar epidural steroid injections as well as right sacroiliac joint injection. Given the patient's acute symptoms and right buttock pain rating to her groin we decided to proceed with right sacroiliac joint injection at the next available date. Patient would like to address the numbness and tingling in her bilateral lower extremity digits. We'll likely proceed with epidural steroid injection L5-S1 interspace in the future. I discussed the risks and benefits of the procedure which include infection, bleeding, rare nerve injury. 3. Disposition: Patient will follow up for procedure right sacral iliac joint injection at next available date. Time with Patient: Greater than 30 PQRS Measure Charge Sheet PQRS Narrative: Smoking Status Never smoker Blood Pressure 136/77 Pain Intensity [Right Back] 5 Scale Used Numeric (1 - 10) Hx Alcohol Use (MH) Yes Home Medications: Ambulatory Orders Latanoprost Ophth [Xalatan 0.005%] 1 drops BOTH EYES HS 10/16/15 amLODIPine [Norvasc] 5 mg PO DAILY 10/16/15 Simvastatin 40 mg PO PC-LUNCH 08/31/19 Zolpidem [Ambien] 5 mg PO HS PRN 08/31/19 Acetaminophen [Tylenol Extra Strength] 1,000 mg PO DIRECTED 04/22/20 Ascorbic Acid [Vitamin C] 500 mg PO DAILY 04/22/20 Aspirin/Acetaminophen/Caffeine [Excedrin Extra Strength Caplet] 1 each PO ONETIME PRN 04/22/20 Cholecalciferol [Vitamin D3 (25 Mcg = 1000 Iu)] 2,000 unit PO DAILY 04/22/20 Ibuprofen 200 mg PO Q8H PRN 04/22/20 L.acidoph,Paracasei, B.lactis [Probiotic] 1 each PO DAILY 04/22/20 Lisinopril 20 mg PO DAILY 04/22/20 Omeprazole 20 mg PO AC-BRKFST 04/22/20 Ubidecarenone [Co Q-10] 200 mg PO DAILY 04/22/20 Vitamin E 450 unit PO DAILY 04/22/20
== END | disposition home or self-care (01) ==
LOC: PNWHC3 10:15
PROVIDERS: ATTEND Anesthesiology
DX: M54.5 Low back pain (principal); M48.061 Spinal stenosis, lumbar region without neurogenic claudication; M51.36 Other intervertebral disc degeneration, lumbar region; M47.816 Spondylosis without myelopathy or radiculopathy, lumbar region; M46.1 Sacroiliitis, not elsewhere classified; Z79.82 Long term (current) use of aspirin; Z79.899 Other long term (current) drug therapy; Z88.2 Allergy status to sulfonamides; Z88.1 Allergy status to other antibiotic agents; Z88.6 Allergy status to analgesic agent
CPT/HCPCS: 99211

== ENCOUNTER 2020-05-02 07:55 | Day surgery (SDC) | payer MEDICARE, OTHER ==
[2020-05-01 10:17] VITALS: BMI 26.3
[~2020-05-02 07:55] MED LIST: LACTATED RINGERS 1,000 ML IV SCH
[2020-05-02 08:22] VITALS: RESP 16; TEMP 97.4
[2020-05-02] MEDS ORDERED: LIDOCAINE 1% (10MG/ML) FOR IV START INTRADERMA ONE (08:37)
[2020-05-02] MEDS ORDERED: IOPAMIDOL M200 10 ML VIAL ONE (09:29)
[2020-05-02] MEDS ORDERED: MIDAZOLAM 2 MG/2 ML VIAL ONE (09:29)
[2020-05-02] MEDS ORDERED: TRIAMCINOLONE ACETONIDE 40 MG/ML 1 ML VIAL ONE (09:29)
[2020-05-02] MEDS ORDERED: fentaNYL (PF) 50 MCG/ML 2 ML AMP ONE (09:29)
[2020-05-02] MEDS ORDERED: ROPIVACAINE 5MG/ML 20ML VIAL ONE (09:29)
[2020-05-02] MEDS ORDERED: IV FLUID CONTINUATION 500 ML IV ONE (09:51)
[2020-05-02 10:20] VITALS: BP 142/78; PULSE 71
--- NOTE | 2020-05-02 10:46 | P.PCN ---
Date of Procedure: 05/02/20 Procedure(s) Performed: Preoperative diagnoses: right sacroilitis Postoperative diagnoses: right sacroilitis. Procedure: right sacroiliac joint steroid injection under fluoroscopic guidance. Surgeon: Iwona Clay MD Anesthesia: [2 mL of 1% lidocaine/moderate sedation with Versed and fentanyl per hospital guidelines], sedation time 9 minutes Fluoroscopy was used for the procedure and fluoroscopic images were saved to the radiology portion of the patient's chart. EBL: None Procedure indication: The patient had a history of severe chronic low back pain, diagnosed with sacroiliitis unresponsive to conservative treatment. Procedure description: The patient was seen and identified in the preoperative holding area, risks and benefits and alternative of the procedure and possible complications discussed with the patient, and patient agreed with the preceding, patient signed the consent, an IV was started, and vital signs were monitored and were stable throughout the procedure, patient was placed in the prone position on table and the lumbosacral area was prepped and draped with a sterile fashion, vital signs were closely monitored during the procedure, the fluoroscopy camera was placed in the contralateral oblique view on the right sacroiliac joint and the lower part of the joint was identified . Then the skin and subcutaneous tissue was anesthetized using 2 mL of 1% lidocaine then a 22- gauge Quincke-type spinal needle advanced slowly under fluoroscopy and placed in the posterior and inferior border of the right sacroiliac joint, placement confirmed with AP and lateral view, and after appropriate needle placement confirmed and after negative aspiration for heme, 1 mL of Isovue 200 was injected revealing intra-articular spread. Then a solution consisting of 2 ml of ropivacaine 0.5% and 40 mg of Kenalog injected after negative aspiration, no paresthesia during the injection, no resistance to injection, and the needle was removed. Patient tolerated the procedure well without any complication. The patient was returned to supine position after the back was cleaned and a Band-Aid applied, the patient was transported to recovery room in stable condition and monitored for 30 minutes before being discharged home. The patient will follow up with the pain clinic in a few weeks
--- NOTE | 2020-05-02 11:56 | FL ---
Fluoroscopy HISTORY: Pain 3 seconds fluoroscopy time supplied to the referring clinician. 3 intraoperative C-arm images docume nt the procedure. See dictated report from anesthesia.
== END 2020-05-02 10:33 | disposition home or self-care (01) ==
LOC: ORPAIN 07:55
PROVIDERS: ATTEND Anesthesiology
DX: G89.29 Other chronic pain (principal); M46.1 Sacroiliitis, not elsewhere classified; Z88.5 Allergy status to narcotic agent; Z88.2 Allergy status to sulfonamides
CPT/HCPCS: J2250; J3301; J3010; Q9966; J2795; G0260; 27096

== ENCOUNTER 2020-05-30 07:42 | Day surgery (SDC) | payer MEDICARE, OTHER ==
[2020-05-28 16:14] VITALS: BMI 26.4
[2020-05-30 08:18] VITALS: TEMP 97.8
[2020-05-30] MEDS ORDERED: LIDOCAINE 1% (10MG/ML) FOR IV START INTRADERMA ONE (08:18)
[2020-05-30] MEDS ORDERED: LACTATED RINGERS 1,000 ML IV ONE (08:18)
[2020-05-30] MEDS ORDERED: fentaNYL (PF) 50 MCG/ML 2 ML AMP ONE (09:11)
[2020-05-30] MEDS ORDERED: methylPREDNISolone ACETATE 40 MG/ML 1 ML VIAL ONE (09:11)
[2020-05-30] MEDS ORDERED: MIDAZOLAM 2 MG/2 ML VIAL ONE (09:11)
[2020-05-30] MEDS ORDERED: ROPIVACAINE 5MG/ML 20ML VIAL ONE (09:11)
--- NOTE | 2020-05-30 09:35 | P.PCN ---
Date of Procedure: 05/30/20 Procedure(s) Performed: Procedure= Right sacroiliac joints steroid injection under fluoroscopy guidance (fluoroscopy image stored on file in the radiology Department ) Preoperative diagnosis= 1-sacroiliitis 2-lumbar degenerative disc disease 3- lumbar spondylosis with lumbar facet arthropathy Postoperative diagnosis=Same as preop Diagnosis . Complication = none Condition= stable Anesthesia= moderate sedation with intravenous Versed 2 mg , and fentanyl 50 micrograms . Indication for the procedure= patient complaining of low back pain , examination was positive for severe tenderness over the sacroiliac joints bilaterally and patient diagnosed with sacroiliitis, for this reason he/ she was good candidate for sacroiliac joint steroid injection. Description of the procedure= procedure risk and benefits discussed with the patient, including but not limited, risk of infection and bleeding, and ALLERGIC reaction to the medication and not complete pain relief and patient agreed with the preceding patient taken to the operating room, placed in prone position or standard monitors applied to the patient then after induction of anesthesia back prepped with chlorhexidine 3 times , Then under strict sterile technique, first I did the right sacroiliac joint the which was identified under fluoroscopy guidance been local infiltration of the skin and subcu interstitial with lidocaine 1% then 25-gauge Quincke Needle advanced slowly under fluoroscopy and placed in the right sacroiliac joint needle placement confirmed with AP and oblique and lateral view and after appropriate needle placement confirmed and after negative aspiration, or heme , then Ropivacaine 0.5% 3 mL, and 40 mg of Depo-Medrol mixed together and injected in the right sacroiliac joint after negative aspiration patient tolerated the procedure well without any complication.
[2020-05-30 09:37] VITALS: RESP 16
[2020-05-30] MEDS ORDERED: IV FLUID CONTINUATION 1,000 ML IV ONE (09:50)
[2020-05-30 09:53] VITALS: BP 156/77; PULSE 61
--- NOTE | 2020-05-30 12:02 | FL ---
Fluoroscopy HISTORY: Pain 4 seconds fluoroscopy time supplied to the referring clinician. 2 intraoperative C-arm images docume nt the procedure. See dictated report from anesthesia.
== END 2020-05-30 10:02 | disposition home or self-care (01) ==
LOC: ORPAIN 07:42
PROVIDERS: ATTEND Specialist
DX: M46.1 Sacroiliitis, not elsewhere classified (principal); M51.36 Other intervertebral disc degeneration, lumbar region; M47.816 Spondylosis without myelopathy or radiculopathy, lumbar region; Z88.5 Allergy status to narcotic agent; Z88.2 Allergy status to sulfonamides
CPT/HCPCS: J2250; J1030; J3010; J2795; G0260; 27096

== ENCOUNTER → 2020-06-19 | Outpatient (CLI) | payer MEDICARE, OTHER ==
[2020-06-19 10:55] VITALS: BP 139/72; PULSE 81; RESP 16
--- NOTE | 2020-06-19 11:40 | P.PAINPG ---
Subjective Progress Note Date: 06/19/20 69-year-old female who presented to our clinic as a consult from Dr. Macias. Her chief complaint at our initial visit was low back pain and right pain pain as well as numbness and tingling in her bilateral lower extremities. She vaguely recalled having some sort of procedure that did help alleviate some of the pain. She does not recall if they were epidural injection. She had noted at our first visit she was having pain over her right low back buttock area at times radiating into her groin and anterior quadricep. We felt that her pain was possibly SI mediated and she has had 2 R SIJ injections (05/02/20, 05/30/20) since we have last seen her. She is here for followup today. she notes that she really only had about 20% relief from her SI joint injections. Her main pain complaint is her right buttock and greater trochanter area on the right side. The pain radiates to the anterior right thigh and the inside of her leg. She also has intermittent bilateral foot numbness of the sole of her foot being numb randomly throughout the day. Sitting and laying down exacerbates the pain. Her as needed medications such as ibuprofen sometimes help with the pain. Currently 7 out of 10. Review of Systems Review of systems is negative for chest pain, shortness of breath, new onset weakness, numbness/tingling, abdominal pain, malaise, fever, night sweats, chills, homicidal or suicidal ideation, or bowel or bladder incontinence. Medications and Allergies Allergies Allergy/AdvReac Type Severity Reaction Status Date / Time hydromorphone HCl Allergy Nausea & Verified 04/24/20 10:37 [From Dilaudid] Vomiting sulfamethoxazole Allergy Rash/Hives Verified 04/24/20 10:37 [From Bactrim] trimethoprim [From Bactrim] Allergy Rash/Hives Verified 04/24/20 10:37 Physical Exam Gen: WDWN, AAOx3, NAD HEENT: NCAT, EOMI, hearing grossly normal Pulm: resp unlabored Abd: soft, NT, ND Neck: supple, trachea midline ROM in flexion lumbar spine: No pain with flexion ROM in extension lumbar spine: Pain with extension of -10 Lumbar paravertebral tenderness: Mild tenderness to palpation along the lumbar paraspinal muscles. TTP over greater trochanter area Facet loading: + Right Straight leg raise: Negative bilateral Neuro: 5 out of 5 upper and lower extremity muscle strength in biceps, triceps, deltoid, quadriceps, gastrocnemius. Reflexes intact patellar, tricep, bicep 2 out of 2. Psychiatric: Mood and affect appropriate Gait: Normal gait, patient transitions with slight pain on the right, no and ambulatory device required. Results Results: MRI lumbar spine: 1. At the L2-3 level there is posterior disc bulge suggestion of a thin broad- based disc herniation. There is 25% impingement upon the neuroforamina bilaterally. 2. At L3 4 there is very mild posterior disc bulge with mild neuroforaminal stenosis bilaterally. At L4-L5 there is grade 1 spondylosis thesis appreciated. With moderate neural foraminal stenosis in the left and mild on the right. 3. At L5-S1 there is a thin broad-based disc herniation slightly more on the left mild neuroforaminal stenosis bilaterally. Assessment and Plan Assessment: 1. Lumbar neural foraminal stenosis 2. Right lumbosacral spondylosis 3. Right sacroiliitis 4. right greater trochanteric bursities Plan: 1. Medication: continue [id number] medication. I prescribed her meloxicam 7.5 mg a day. 2. Procedures: given that sacroiliac joint injections and had limited efficacy will not be repeating them as of now. Schedule her for an L5-S1 interlaminar epidural steroid injection with right paramedian approach and that on her MRI she does have some disc bulging at that level. She also has some evidence of greater trochanteric bursitis and we can target this in the future I discussed the risks and benefits of the procedure which include infection, bleeding, rare nerve injury. 3. Disposition: Patient will follow up for L5-S1 ILESI Smoking Status Never smoker Blood Pressure 136/77 Pain Intensity [Right Back] 5 Scale Used Numeric (1 - 10) Hx Alcohol Use (MH) Yes PQRS Measure Charge Sheet Measure #226: Tobacco Use: Screen & Cessation Intervention: Pt not a tobacco user Measure #111: Pneumonia Vaccination: Pneumococcal vaccine administered or previously received Measure #47: Advance Care Plan: Advance care planning discussed & documented, pt chose/unable to give Measure #317: Preventitive Care & Scrn High Bld Press & F/U: Normal blood pressure, f/u not required Measure #128: Body Mass Index (BMI) Screening & Follow-up: BMI documented within normal parameters Measure #131: Pain Assessment & Follow-up: Pain positive & plan documented, Follow-up scheduled Measure #431: Unhealthy Alcohol Use Preventative Care & Scrn: Patient not identified as an unhealthy alcohol user PQRS Narrative: Smoking Status Never smoker Pain Intensity [Right Lower 5 Back] Hx Alcohol Use (MH) Yes Home Medications: Ambulatory Orders Latanoprost Ophth [Xalatan 0.005%] 1 drops BOTH EYES HS 10/16/15 amLODIPine [Norvasc] 5 mg PO DAILY 10/16/15 Zolpidem [Ambien] 5 mg PO HS PRN 08/31/19 Acetaminophen [Tylenol Extra Strength] 1,000 mg PO DAILY PRN 04/22/20 Ascorbic Acid [Vitamin C] 500 mg PO DAILY 04/22/20 Aspirin/Acetaminophen/Caffeine [Excedrin Extra Strength Caplet] 1 each PO ONETIME PRN 04/22/20 Cholecalciferol [Vitamin D3 (25 Mcg = 1000 Iu)] 2,000 unit PO DAILY 04/22/20 Ibuprofen 200 mg PO Q8H PRN 04/22/20 L.acidoph,Paracasei, B.lactis [Probiotic] 1 each PO DAILY 04/22/20 Omeprazole 20 mg PO AC-BRKFST 04/22/20 Ubidecarenone [Co Q-10] 200 mg PO DAILY 04/22/20 Vitamin E 450 unit PO DAILY 04/22/20 lisinopriL 20 mg PO DAILY 04/22/20 Multivitamins, Thera [Multivitamin (formulary)] 1 tab PO DAILY 05/01/20 Simvastatin [Zocor] 40 mg PO HS 05/01/20 Magnesium 250 mg PO HS 06/12/20 Meloxicam [Mobic] 7.5 mg PO DAILY #30 tab 06/19/20 Controlled Substance Measures - Controlled Substance Measures Is patient prescribed a controlled substance at discharge?: No
== END | disposition home or self-care (01) ==
LOC: PNWHC3 10:35
PROVIDERS: ATTEND Anesthesiology
DX: M48.061 Spinal stenosis, lumbar region without neurogenic claudication (principal); M46.1 Sacroiliitis, not elsewhere classified; M47.817 Spondylosis without myelopathy or radiculopathy, lumbosacral region; Z79.891 Long term (current) use of opiate analgesic; Z79.899 Other long term (current) drug therapy; Z79.82 Long term (current) use of aspirin
CPT/HCPCS: 99211

== ENCOUNTER 2020-07-02 10:25 | Day surgery (SDC) | payer MEDICARE, OTHER ==
[2020-06-26 15:24] VITALS: BMI 26.4
[2020-07-02 11:48] VITALS: RESP 16; TEMP 97.4
[2020-07-02] MEDS ORDERED: LACTATED RINGERS 1,000 ML IV ONE (11:50)
[2020-07-02] MEDS ORDERED: methylPREDNISolone ACETATE 40 MG/ML 1 ML VIAL ONE (12:09)
[2020-07-02] MEDS ORDERED: IOPAMIDOL M200 10 ML VIAL ONE (12:09)
[2020-07-02] MEDS ORDERED: MIDAZOLAM 2 MG/2 ML VIAL ONE (12:09)
--- NOTE | 2020-07-02 12:35 | FL ---
EXAMINATION TYPE: FL guided pain mgmt statistic DATE OF EXAM: 07/02/2020 HISTORY: Fluoroscopy time 8 seconds of fluoroscopy provided. IMPRESSION: 1. Fluoroscopy time.
[2020-07-02] MEDS ORDERED: LACTATED RINGERS 1,000 ML IV SCH (12:38)
[2020-07-02 12:43] VITALS: BP 127/87; PULSE 71
[2020-07-02] MEDS ORDERED: IV FLUID CONTINUATION 1,000 ML IV ONE (12:55)
--- NOTE | 2020-07-02 14:35 | P.PCN ---
Date of Procedure: 07/02/20 Description of Procedure: PREOPERATIVE DIAGNOSIS: Lumbar radiculopathy POSTOPERATIVE DIAGNOSIS: Same PROCEDURE PERFORMED: Interlaminar Epidural Steroid Injection at the L5-S1 level, with a right paramedian approach under fluoroscopic guidance SURGEON: Carrillo Gil MD ANESTHESIA: Local with 1% lidocaine 3 ml and IV sedation with Versed and fentanyl, sedation time 7 min Fluoroscopy was used for the procedure and images were saved in the radiology portion of the chart. EBL: Minimal PROCEDURE INDICATION: The patient presents with lumbar radicular symptoms unresponsive to conservative treatment. This is the first lumbar epidural steroid injection PROCEDURE DESCRIPTION / TECHNIQUE: The patient was seen and identified in the preoperative area. Risks, benefits, complications including but not limited to infections ,bleeding ,allergic reaction to the medications ,nerve damage and incomplete pain relief, and alternatives were discussed with the patient. The patient agreed to proceed with the procedure and signed the consent. IV was started, and vital signs were stable. Patient was taken to the OR and time out was completed. The patient was placed in the prone position on procedure table and a pillow was placed under the chest area. The cervical area was prepped and draped in the usual sterile fashion. Conscious sedation was used during the procedure to decrease patients anxiety. Vital signs was monitored during the entire procedure. Using anterior-posterior fluoroscopy, the [] interlaminar space was identified and the skin over this site was marked and then infiltrated with 1% lidocaine subcutaneously. Subsequently, a 20-gauge Tuohy epidural needle was inserted and advanced toward the epidural space using the loss of resistance technique and guided by AP and lateral views. The correct needle position in the epidural space was verified. After negative aspiration for blood and CSF and in the absence of paresthesias, Isovue 200 2 mL's was injected under live fluoroscopy with good epidural spread. After negative aspiration, a 5 mL mixture containing 80 mg Depo-Medrol, 2 mL lidocaine 1%, 2 mL normal saline. Needle was withdrawn intact, skin was cleansed, and bandages were applied. COMPLICATIONS: None DISPOSITION / PLANS: The patient was placed in a supine position and transferred to the recovery area in a stable condition for observation. There was no evidence of lower extremity motor or sensory deficit after the procedure. Patient was discharged from the recovery room after meeting discharge criteria. Home discharge instructions were given to the patient by the staff. The patient will be scheduled a repeat procedure in the clinic in 2-4 weeks.
== END 2020-07-02 12:59 | disposition home or self-care (01) ==
LOC: ORPAIN 10:25
PROVIDERS: ATTEND Anesthesiology
DX: M54.16 Radiculopathy, lumbar region (principal); Z88.2 Allergy status to sulfonamides; Z88.5 Allergy status to narcotic agent
CPT/HCPCS: 62323; J2250; J1030; Q9966

== ENCOUNTER 2020-08-06 06:21 | Day surgery (SDC) | payer MEDICARE, OTHER ==
[2020-07-30 09:28] VITALS: BMI 26.4
[2020-08-06 06:50] VITALS: TEMP 97.9
[2020-08-06] MEDS ORDERED: LACTATED RINGERS 1,000 ML IV ONE ×2 (06:59)
[2020-08-06] MEDS ORDERED: TRIAMCINOLONE ACETONIDE 40 MG/ML 1 ML VIAL ONE (07:01)
[2020-08-06] MEDS ORDERED: IOPAMIDOL M200 10 ML VIAL ONE (07:01)
[2020-08-06] MEDS ORDERED: MIDAZOLAM 2 MG/2 ML VIAL ONE (07:01)
--- NOTE | 2020-08-06 07:18 | P.PCN ---
Date of Procedure: 08/06/20 Description of Procedure: PREOPERATIVE DIAGNOSIS: Lumbar radiculopathy POSTOPERATIVE DIAGNOSIS: Same PROCEDURE PERFORMED: Interlaminar Epidural Steroid Injection at the L5-S1 level, with a right paramedian approach under fluoroscopic guidance SURGEON: Carrillo Gil MD ANESTHESIA: Local with 1% lidocaine 3 ml and IV sedation with Versed and fentanyl, sedation time 17 min Fluoroscopy was used for the procedure and images were saved in the radiology portion of the chart. EBL: Minimal PROCEDURE INDICATION: The patient presents with lumbar radicular symptoms unresponsive to conservative treatment. This is the second lumbarepidural steroid injection PROCEDURE DESCRIPTION / TECHNIQUE: The patient was seen and identified in the preoperative area. Risks, benefits, complications including but not limited to infections ,bleeding ,allergic reaction to the medications ,nerve damage and incomplete pain relief, and alternatives were discussed with the patient. The patient agreed to proceed with the procedure and signed the consent. IV was started, and vital signs were stable. Patient was taken to the OR and time out was completed. The patient was placed in the prone position on procedure table and a pillow was placed under the chest area. The cervical area was prepped and draped in the usual sterile fashion. Conscious sedation was used during the procedure to decrease patients anxiety. Vital signs was monitored during the entire procedure. Using anterior-posterior fluoroscopy, the L5-S1 interlaminar space was identified and the skin over this site was marked and then infiltrated with 1% lidocaine subcutaneously. Subsequently, a 20-gauge Tuohy epidural needle was inserted and advanced toward the epidural space using the loss of resistance technique and guided by AP and lateral views. The correct needle position in the epidural space was verified. After negative aspiration for blood and CSF and in the absence of paresthesias, Isovue 200 2 mL's was injected under live fluoroscopy with good epidural spread. After negative aspiration, a 5 mL mixture containing 2 mL preservative-free normal saline, 2 mL 1% lidocaine, 1 mL Depo- Medrol for a total of 40 mg Depo-Medrol. Needle was withdrawn intact, skin was cleansed, and bandages were applied. COMPLICATIONS: None DISPOSITION / PLANS: The patient was placed in a supine position and transferred to the recovery area in a stable condition for observation. There was no evidence of lower extremity motor or sensory deficit after the procedure. Patient was discharged from the recovery room after meeting discharge criteria. Home discharge instructions were given to the patient by the staff. The patient will be scheduled a [follow up/repeat procedure] in the clinic in 2-4 weeks. To recap, the patient is having right-sided low back pain with positive SI joint maneuvers, however the patient has not got any relief from SI joint injections in the past. Could consider medial branch workup in the future if the epidural does not last longer than 1 week as the previous one dated. Muscle temporarily increase her meloxicam 15 mg once a day. Not recommend any more steroid injections is here as the patient has already had 4.
[2020-08-06] MEDS ORDERED: IV FLUID CONTINUATION 800 ML IV ONE (07:22)
[2020-08-06 07:25] VITALS: RESP 16
[2020-08-06 07:40] VITALS: BP 127/77; PULSE 66
[2020-08-06] MEDS ORDERED: LACTATED RINGERS 1,000 ML IV SCH (07:59)
--- NOTE | 2020-08-06 08:16 | FL ---
Fluoroscopy HISTORY: Pain 21 seconds fluoroscopy time supplied to the referring clinician. 2 intraoperative C-arm images docum ent the procedure. See dictated report from anesthesia.
== END 2020-08-06 08:25 | disposition home or self-care (01) ==
LOC: ORPAIN 06:21
PROVIDERS: ATTEND Anesthesiology
DX: M54.16 Radiculopathy, lumbar region (principal); M54.5 Low back pain; Z88.5 Allergy status to narcotic agent; Z88.2 Allergy status to sulfonamides; Z90.710 Acquired absence of both cervix and uterus
CPT/HCPCS: 62323; J2250; J3301; Q9966

== ENCOUNTER → 2020-08-30 | Outpatient (CLI) | payer MEDICARE, OTHER ==
--- NOTE | 2020-08-30 12:54 | XR ---
EXAMINATION TYPE: XR cervical spine w flex/ext DATE OF EXAM: 08/30/2020 COMPARISON: NONE HISTORY: Pain TECHNIQUE: Four views are submitted. Additionally flexion and extension views are submitted. FINDINGS: The odontoid is intact. There are no compression deformities. The prevertebral soft tissue structur es are within normal limits. There is multilevel degenerative disc disease most marked at C5-C6 and C6-C7 with anterior hypertrophic spurring. 2 mm anterolisthesis of C3-4 and C4 -C5. Stable alignment at C3-C4 on flexion area and there is improved alignment at C4-C5 on extension. Multilevel facet arth ropathy. Soft tissue ossification or calcification posteriorly. Calcifications in the soft tissues of the neck noted. IMPRESSION: 1. Multilevel degenerative disc disease with anterolisthesis C3-4 and C4-5. Slight improvement in ali gnment upon extension.
== END | disposition home or self-care (01) ==
LOC: RADXRMAIN 12:06
PROVIDERS: ATTEND Internal Medicine
DX: M50.321 Other cervical disc degeneration at C4-C5 level (principal); M43.12 Spondylolisthesis, cervical region; M47.812 Spondylosis without myelopathy or radiculopathy, cervical region
CPT/HCPCS: 72052

== ENCOUNTER → 2020-09-23 | Outpatient (CLI) | payer MEDICARE, OTHER ==
--- NOTE | 2020-09-24 13:22 | MM ---
Reason for exam: screening (asymptomatic). Last mammogram was performed 1 year ago. History: Patient is postmenopausal. Family history of breast cancer in paternal grandmother at age 90. Benign US biopsy breast VAD LT of the left breast, September 19, 2019. Benign ultrasound-guided core biopsy of the right breast, April 07, 2005. Cyst aspiration of the right breast. Core biopsy of the right breast. 2 excisional biopsies of the left breast. Excisional biopsy of the right breast. Took estrogen for 6 months. Took progesterone for 1 year beginning at age 60. Physical Findings: A clinical breast exam by your physician is recommended on an annual basis and results should be correlated with mammographic findings. MG 3D Screening Mammo W/Cad Bilateral CC and MLO view(s) were taken. Prior study comparison: September 19, 2019, left breast MG diagnostic mammo LT wo CAD. August 29, 2019, bilateral MG 3d diag mammo w/cad ROSAS. The breast tissue is heterogeneously dense. This may lower the sensitivity of mammography. Previous mammotome biopsy in the left breast. There is chronic nodularity in the right breast medially and in the left breast laterally. Global asymmetry lateral left CC view is unchanged. No significant changes when compared with prior studies. ASSESSMENT: Benign, BI-RAD 2 RECOMMENDATION: Routine screening mammogram of both breasts in 1 year.
== END | disposition home or self-care (01) ==
LOC: RADMAMWWP 13:38
PROVIDERS: ATTEND Obstetrics & Gynecology
DX: Z12.31 Encounter for screening mammogram for malignant neoplasm of breast (principal)
CPT/HCPCS: 77063; 77067

== ENCOUNTER → 2020-10-14 | Outpatient (CLI) | payer MEDICARE, OTHER ==
--- NOTE | 2020-10-15 08:38 | XR ---
Left foot HISTORY: M 79.672, pain for 3 months, numbness 3 views the left foot Degenerative changes present at the metatarsophalangeal joint of the first digit. Alignment, bone min eralization are maintained. No fracture or dislocation. There is a plantar calcaneal spur. Spurring i s present at the intertarsal joints, tarsometatarsal joints. IMPRESSION: Osteoarthritis, plantar calcaneal spur.
== END | disposition home or self-care (01) ==
LOC: RAD 16:00
PROVIDERS: ATTEND Internal Medicine
DX: M19.072 Primary osteoarthritis, left ankle and foot (principal)

== ENCOUNTER → 2020-10-18 | Outpatient (CLI) | payer MEDICARE, OTHER | END | disposition home or self-care (01) | LOC: RADUSWWP 13:35 | PROVIDERS: ATTEND Internal Medicine | DX: M79.672 Pain in left foot (principal); I73.9 Peripheral vascular disease, unspecified | CPT/HCPCS: 93923 ==

== ENCOUNTER → 2021-06-19 | Outpatient (CLI) | payer MEDICARE, OTHER ==
--- NOTE | 2021-06-19 14:51 | US ---
EXAMINATION TYPE: US thyroid st tissue head/neck DATE OF EXAM: 06/19/2021 COMPARISON: CT cervical spine February 18, 2012 CLINICAL HISTORY: Nontoxic multinodular goiter E04.2. GLAND SIZE: Right Lobe: 4.0 x 1.6 x 1.8 cm Overall Parenchyma: homogenous Left Lobe: 3.5 x 1.7 x 1.5 cm Overall Parenchyma: homogeneous Isthmus Thickness: 0.3 cm NODULES RIGHT: # of nodules measured on right: 3 largest of multiple 1. 0.5 X 0.5 x 0.4 cm, lower lateral, spongiform, hypoechoic nodule, which is wider than tall, with irregular margins, without echogenic foci. 2. 0.6 X 0.8 x 0.4 cm, lower mid, mixed cystic and solid, isoechoic nodule, which is wider than valery l, with irregular margins, with echogenic foci. 3. 0.8 X 1.2 x 0.6 cm, lower medial, solid or almost completely solid, hypoechoic nodule, which is wider than tall, with irregular margins, with punctate echogenic foci. LEFT: # of nodules measured on left: 3 largest of multiple 1. 0.5 X 0.6 x 0.4 cm, mid medial, spongiform, hypoechoic nodule, which is wider than tall, with ir regular margins, without echogenic foci. 2. 0.7 X 0.6 x 0.5 cm, lower mid, mixed cystic and solid, hypoechoic nodule, which is wider than t all, with irregular margins, with echogenic foci. 3. 0.5 X 0.6 x 0.4 cm, mid lateral, spongiform, hypoechoic nodule, which is wider than tall, with i rregular margins, with echogenic wall foci. ISTHMUS: # of nodules measured in the isthmus: 0 Bilateral neck scanned: no evidence of lymphadenopathy. There is fairly homogeneous somewhat small size thyroid with multiple small nodules all measuring und er 1.0 cm mean axis. Most concerning nodule lower pole right thyroid is lower pole right thyroid nodule with punctate echo genic foci. IMPRESSION: As above. Annual ultrasound surveillance advised. 2017 ACR TI-RADS LEVEL: TI-RADS 5 - Highly Suspicious: Follow if > 0.5 cm, FNA if > 1.0 cm *Highest TI-RADS level nodule reported
[2021-06-19 15:51] LABS: T4, Free (Free Thyroxine) 0.92 ng/dL (0.78-2.19)
== END | disposition home or self-care (01) ==
LOC: RADUSWWP 13:49
PROVIDERS: ATTEND Internal Medicine Endocrinology, Diabetes & Metabolism
DX: E04.2 Nontoxic multinodular goiter (principal)
CPT/HCPCS: 76536; 84439; 84443

== ENCOUNTER → 2021-09-26 | Outpatient (CLI) | payer MEDICARE, OTHER ==
--- NOTE | 2021-09-29 11:00 | MM ---
Reason for exam: screening (asymptomatic). Last mammogram was performed 1 year ago. History: Patient is postmenopausal. Family history of breast cancer in paternal grandmother at age 90. Benign US biopsy breast VAD LT of the left breast, September 19, 2019. Benign ultrasound-guided core biopsy of the right breast, April 07, 2005. Cyst aspiration of the right breast. Core biopsy of the right breast. 2 excisional biopsies of the left breast. Excisional biopsy of the right breast. Took estrogen for 6 months. Took progesterone for 1 year beginning at age 60. Physical Findings: A clinical breast exam by your physician is recommended on an annual basis and results should be correlated with mammographic findings. MG 3D Screening Mammo W/Cad Bilateral CC and MLO view(s) were taken. Prior study comparison: September 23, 2020, bilateral MG 3d screening mammo w/cad. September 19, 2019, left breast MG diagnostic mammo LT wo CAD. The breast tissue is heterogeneously dense. This may lower the sensitivity of mammography. Previous mammotome biopsy in the left breast. No significant changes when compared with prior studies. ASSESSMENT: Benign, BI-RAD 2 RECOMMENDATION: Routine screening mammogram of both breasts in 1 year.
== END | disposition home or self-care (01) ==
LOC: RADMAMWWP 09:19
PROVIDERS: ATTEND Obstetrics & Gynecology
DX: Z12.31 Encounter for screening mammogram for malignant neoplasm of breast (principal); Z80.3 Family history of malignant neoplasm of breast; Z78.0 Asymptomatic menopausal state
CPT/HCPCS: 77063; 77067

== ENCOUNTER → 2022-09-16 | Outpatient (CLI) | payer MEDICARE, OTHER ==
--- NOTE | 2022-09-16 15:38 | XR ---
EXAMINATION TYPE: XR chest 2V DATE OF EXAM: 09/16/2022 COMPARISON: 04/19/2020 TECHNIQUE: PA and lateral views submitted. HISTORY: Cough FINDINGS: The lungs are clear and there is no pneumothorax, pleural effusion, or focal pneumonia. Hypertrophi c and degenerative changes of the spine. Postsurgical change involving the shoulders. Biapical pleura l thickening. Degenerative changes of the spine. No overt failure. IMPRESSION: 1. No acute process.
== END | disposition home or self-care (01) ==
LOC: RADXRMAIN 15:23
PROVIDERS: ATTEND Internal Medicine
DX: R05.9 Cough, unspecified (principal)
CPT/HCPCS: 71046

== ENCOUNTER → 2022-09-29 | Outpatient (CLI) | payer MEDICARE, OTHER ==
--- NOTE | 2022-09-30 08:07 | MM ---
Reason for Exam: Screening (asymptomatic). Last screening mammogram was performed 12 month(s) ago. Patient History: Menarche at age 15. First Full-Term at age 20. Left ovary removed at age 53. Right ovary removed at age 53. Hysterectomy at age 53. Postmenopausal. Estrogen for 6 months until age 55. Progesterone, starting at age 60 for 1 year. Cyst Aspiration on the Right side. Core Biopsy on the Right side. Excisional Biopsy on the Right side. Excisional Biopsy on the Left side. Excisional Biopsy on the Left side. 09/19/2019, Benign Core Biopsy on the left side. 04/07/2005, Benign Ultrasound-Guided Core Biopsy on the right side. Paternal grandmother had breast cancer, age 90. Risk Values: Shira 5 year model risk: 2.2%. NCI Lifetime model risk: 5.3%. Prior Study Comparison: 09/19/2019 Left Diagnostic Mammogram, [facility]. 09/23/2020 Bilateral Screening Mammogram, [facility]. 09/26/2021 Bilateral Screening Mammogram, [facility]. Tissue Density: The breast tissue is heterogeneously dense. This may lower the sensitivity of mammography. Findings: Analyzed By CAD. Postbiopsy changes to the left breast. There is no suspicious group of microcalcifications or new suspicious mass in either breast. Overall Assessment: Benign, BI-RAD 2 Management: Screening Mammogram of both breasts in 1 year. A clinical breast exam by your physician is recommended on an annual basis and results should be correlated with mammographic findings. [facility] will attempt to contact patient to return for supplemental views and ultrasound if indicated. Electronically signed and approved by: Chandrakant Carrasco DO
== END | disposition home or self-care (01) ==
LOC: RADMAMWWP 09:28
PROVIDERS: ATTEND Obstetrics & Gynecology
DX: Z12.31 Encounter for screening mammogram for malignant neoplasm of breast (principal); Z80.3 Family history of malignant neoplasm of breast; Z78.0 Asymptomatic menopausal state; Z90.721 Acquired absence of ovaries, unilateral
CPT/HCPCS: 77063; 77067

== ENCOUNTER → 2022-09-29 | Outpatient (CLI) | payer MEDICARE, OTHER ==
--- NOTE | 2022-09-29 10:55 | US ---
EXAMINATION TYPE: US thyroid st tissue head/neck DATE OF EXAM: 09/29/2022 COMPARISON: Thyroid ultrasound 06/19/2021. CLINICAL HISTORY: E04.2 Goiter. GLAND SIZE: Right Lobe: 3.6 x 1.5 x 1.8 cm, previously 4.0 x 1.6 x 1.8 cm. Overall Parenchyma: homogenous Left Lobe: 3.4 x 1.8 x 1.6 cm, previously 3.5 x 1.7 x 1.5 cm. Overall Parenchyma: homogeneous Isthmus Thickness: 0.3 cm NODULES RIGHT: # of nodules measured on right: 3 1. 0.5 X 0.4 x 0.6 cm, lower lateral, spongiform, hypoechoic nodule, which is wider than tall, with ill-defined margins, without echogenic foci. Prior size: 0.5 x 0.5 x 0.4 cm 2. 0.8 X 0.4 x 0.7 cm, lower mid, solid or almost completely solid, isoechoic nodule, which is wide r than tall, with ill-defined margins, without echogenic foci. Prior size: 0.6 x 0.8 x 0.4 cm 3. 1.0 X 0.6 x 0.9 cm, lower medial, solid or almost completely solid, hypoechoic nodule, which is wider than tall, with ill-defined margins, with punctate echogenic foci. Prior size: 0.8 x 1.2 x 0.6 cm LEFT: # of nodules measured on left: 3 1. 0.6 X 0.4 x 0.7 cm, mid medial, solid or almost completely solid, isoechoic nodule, which is wid er than tall, with ill-defined margins, without echogenic foci. Prior size: 0.5 x 0.6 x 0.4 cm 2. 0.7 X 0.6 x 0.6 cm, lower mid, mixed cystic and solid, hypoechoic nodule, which is wider than t all, with smooth margins, with echogenic foci. Prior size: 0.7 x 0.6 x 0.5 cm 3. 0.6 X 0.4 x 0.5 cm, mid lateral, solid or almost completely solid, hypoechoic nodule, which is w ider than tall, with smooth margins, without echogenic foci. Prior size: 0.5 x 0.6 x 0.4 cm ISTHMUS: # of nodules measured in the isthmus: 0 Bilateral neck scanned, no evidence of lymphadenopathy. IMPRESSION: Stable bilateral thyroid nodules as described above with largest measuring up to 1 cm on the right.
== END | disposition home or self-care (01) ==
LOC: RADUSWWP 09:29
PROVIDERS: ATTEND Internal Medicine Endocrinology, Diabetes & Metabolism
DX: E04.2 Nontoxic multinodular goiter (principal)
CPT/HCPCS: 76536

== ENCOUNTER → 2023-03-26 | Outpatient (CLI) | payer MEDICARE, OTHER ==
--- NOTE | 2023-03-26 09:56 | BD ---
EXAMINATION TYPE: Axial Bone Density DATE OF EXAM: 03/26/2023 CLINICAL HISTORY: 72 years old Female. ICD-10 CODE: M85.851 OSTEOPENIA Height: 60 Weight: 140 FRAX RISK QUESTIONS: Alcohol (3 or more units per day): no Family History (Parent hip fracture): no Glucocorticoids (More than 3mos): no History of Fracture in Adulthood: Wrist, Ribs Secondary Osteoporosis: 1. Type 1 Diabetes: no 2. Hyperthyroidism: no 3. Menopause before 45: no 4. Malnutrition: no 5. Chronic liver disease: no Rheumatoid Arthritis: no Current Tobacco Use: no RISK FACTORS HISTORY OF: Hip Fracture (Right/Left): no Spine Fracture: no History of Wrist Fracture: Rt wrist When: Age 24 Surgery to Spine/Hip(right/left)/Wrist (right/left): no Family History of Osteoporosis: no Active: yes Diet low in dairy products/other sources of calcium: no Postmenopausal woman: yes Take estrogen and/or progesterone medications: no Lost more than 2 inches in height since high school: no Frequent falls: no Poor Health: no Hyperparathyroidism: no Adrenal Insufficiency: no MEDICATIONS: Prednisone or other steroids: no Thyroid Medications: no Osteoporosis Medications: no Additional Medications: BP meds x2, Cholesterol x2, Vit D, Vit E, Calcium Additional History: EXAM MEASUREMENTS: Bone mineral densitometry was performed using the Nervogrid System. Bone mineral density as measured about the Lumbar spine is: ----- L1-L4(G/cm2): 1.110 T Score Values are as follows: ----- L1: -1.6 ----- L2: -1.3 ----- L3: -0.1 ----- L4: 0.0 ----- L1-L4:-0.6 Z Score Values are as follows: ----- L1: 0.1 ----- L2: 0.5 ----- L3: 1.7 ----- L4: 2.0 ----- L1-L4: 1.2 Bone mineral density has: decreased -5.4 % since study of: 06/10/2015 Bone mineral density about the R hip (g/cm2): 0.823 Bone mineral density about the L hip (g/cm2): 0.803 T Score values are as follows: -----R Neck: -2.7 -----L Neck: -2.3 -----R Total: -1.5 -----L Total: -1.6 Z Score values are as follows: -----R Neck: -0.8 -----L Neck: -0.4 -----R Total: 0.2 -----L Total: 0.1 Bone mineral density has: decreased -12.3 % since study of: 06/10/2015 FRAX%s: The graph provided illustrates a 26.6% chance for a major osteoporotic fx and a 8.4% chance f or the hips probability for fx in 10 years time. IMPRESSION: Osteoporosis (T Score less than -2.5). There is increased fracture risk and therapy is usually indicated based on age. Re-Screen 1-2 years. NOTE: T-SCORE=SD OF THE YOUNG ADULT MEAN.
== END | disposition home or self-care (01) ==
LOC: RADBDWWP 07:47
PROVIDERS: ATTEND Internal Medicine
DX: M81.0 Age-related osteoporosis without current pathological fracture (principal); M85.89 Other specified disorders of bone density and structure, multiple sites
CPT/HCPCS: 77080

== ENCOUNTER → 2023-04-06 | Outpatient (CLI) | payer MEDICARE, OTHER ==
--- NOTE | 2023-04-07 07:22 | US ---
EXAMINATION TYPE: US thyroid st tissue head/neck DATE OF EXAM: 04/06/2023 COMPARISON: Most recent 09/29/2022 CLINICAL INDICATION: Female, 72 years old with history of E04.2 NONTOXIC MULTINODULAR GOITER; thyroid nodules. GLAND SIZE: Right Lobe: 3.9 x 1.7 x 1.6 cm Overall Parenchyma: heterogenous Left Lobe: 3.3 x 1.6 x 1.7 cm Overall Parenchyma: heterogenous Isthmus Thickness: 0.2 cm NODULES RIGHT: # of nodules measured on right: Multiple subcentimeter nodules largest measured. 1. 0.9 X 0.7 x 1.0 cm, lower medial, Prior size: 1.0 x 0.6 x 0.9 cm TIRADS Score: 3 TIRADS Category 3: Mildly Suspicious Composition: Mixed cystic and solid (1 point). Echogenicity: Hypoechoic (2 points). Shape: Wider than tall (0 points). Margin: Smooth (0 points). Echogenic foci: None or large comet-tail artifacts (0 points) Recommendation: If >2.5cm: FNA; If >1.5cm: Follow up at 1,3,5 years LEFT: # of nodules measured on left:2 1. 0.6 X 0.5 x 0.5 cm, mid , Prior size: 0.6 x 0.4 x 0.7 cm TIRADS Score: 3 TIRADS Category 3: Mildly Suspicious Composition: Mixed cystic and solid (1 point). Echogenicity: Hypoechoic (2 points). Shape: Wider than tall (0 points). Margin: Smooth (0 points). Echogenic foci: None or large comet-tail artifacts (0 points) Recommendation: If >2.5cm: FNA; If >1.5cm: Follow up at 1,3,5 years 2. 0.6 X 0.4 x0.6 cm, mid , Prior size: 0.7 x 0.6 x 0.6 cm TIRADS Score: 4 TIRADS Category 4: Moderately Suspicious Composition: Solid or almost completely solid (2 points). Echogenicity: Hypoechoic (2 points). Shape: Wider than tall (0 points). Margin: Smooth (0 points). Echogenic foci: None or large comet-tail artifacts (0 points) Recommendation: If >1.5cm: FNA; If >1cm: Follow up at 1,2, 3,5 years ISTHMUS: # of nodules measured in the isthmus: 0 Bilateral neck scanned, no evidence of lymphadenopathy. IMPRESSION: Stable bilateral thyroid nodules given differences in technique. Recommendations as described above.
== END | disposition home or self-care (01) ==
LOC: RADUSWWP 15:36
PROVIDERS: ATTEND Internal Medicine Endocrinology, Diabetes & Metabolism
DX: E04.2 Nontoxic multinodular goiter (principal)
CPT/HCPCS: 76536

== ENCOUNTER 2023-06-02 19:14 | Emergency (ER) | payer MEDICARE, OTHER ==
[2023-06-02 19:57] LABS: Basophils % (A) 0 %; Eosinophils # (A) 0.2 k/uL (0-0.7); Eosinophils % (A) 3 %; HGB 12.4 gm/dL (11.4-16.0); Lymphocytes # (A) 1.5 k/uL (1.0-4.8); Lymphocytes % (A) 20 %; MCH 30.3 pg (25.0-35.0); MCHC 32.7 g/dL (31.0-37.0); MCV 92.7 fL (80.0-100.0); Mean Platelet Volume 8.2; Monocytes # (A) 0.4 k/uL (0-1.0); Monocytes % (A) 5 %; Neutrophils # (A) 5.5 k/uL (1.3-7.7); Neutrophils % (A) 71 %; Platelet Count 194 k/uL (150-450); RDW 12.5 % (11.5-15.5); WBC 7.7 k/uL (3.8-10.6)
[2023-06-02 20:10] LABS: ALT 25 U/L (4-34); AST 29 U/L (14-36); African American GFR (CKD) >90 (>60 ml/min/1.73 sqM); Albumin 4.1 g/dL (3.5-5.0); Alkaline Phosphatase 67 U/L (38-126); Amylase 125 U/L (30-110); Anion Gap 8 mmol/L; Blood Urea Nitrogen 20 mg/dL (7-17); Calcium 8.9 mg/dL (8.4-10.2); Carbon Dioxide 22 mmol/L (22-30); Chloride 106 mmol/L (98-107); Glucose 187 mg/dL (74-99); Lipase 232 U/L (23-300); Non-African American GFR(CKD) 84 (>60 ml/min/1.73 sqM); Potassium 4.6 mmol/L (3.5-5.1); Sodium 136 mmol/L (137-145); Total Bilirubin 0.4 mg/dL (0.2-1.3); Total Protein 6.6 g/dL (6.3-8.2)
[2023-06-02] MEDS ORDERED: KETOROLAC 15 MG/ML 1 ML VIAL IVP STA (21:26)
[2023-06-02] MEDS ORDERED: FAMOTIDINE 20 MG/2 ML VIAL IV STA (21:26)
--- NOTE | 2023-06-02 21:32 | ED ---
Abdominal Pain HPI - General Chief Complaint: Abdominal Pain Stated Complaint: NVD Time Seen by Provider: 06/02/23 20:42 Source: patient, RN notes reviewed, old records reviewed Mode of arrival: ambulatory Limitations: no limitations - History of Present Illness Initial Comments: 72-year-old female presents to the emergency room with abdominal pain that started around 3:00 this afternoon. Patient states that yesterday she had 2 episodes of vomiting. Today was vomiting most of the day, undigested food. Denies any fevers. EMS did give Zofran with relief of her nausea. She does have a history of total hysterectomy, rectocele and cystocele surgeries. GERD, hypertension and anxiety. Denies any chest pain or shortness of breath. MD Complaint: abdominal pain -: hour(s) (5) Location: diffuse Radiation: none Consistency: intermittent Improves With: bowel movement Worsens With: nothing Associated Symptoms: nausea, vomiting, constipation - Related Data Home Medications Medication Instructions Recorded Confirmed Latanoprost Ophth [Xalatan 0.005%] 1 drops BOTH EYES HS 10/16/15 08/06/20 amLODIPine [Norvasc] 5 mg PO DAILY 10/16/15 08/06/20 Zolpidem [Ambien] 5 mg PO HS PRN 08/31/19 08/06/20 Ascorbic Acid [Vitamin C] 500 mg PO DAILY 04/22/20 08/06/20 Aspirin/Acetaminophen/Caffeine 1 each PO DAILY 04/22/20 08/06/20 [Excedrin Extra Strength Caplet] Cholecalciferol [Vitamin D3 (25 2,000 unit PO DAILY 04/22/20 08/06/20 Mcg = 1000 Iu)] Ibuprofen 200 mg PO Q8H PRN 04/22/20 08/05/20 L.acidoph,Paracasei, B.lactis 1 each PO DAILY 04/22/20 08/06/20 [Probiotic] Omeprazole 20 mg PO AC-BRKFST 04/22/20 08/06/20 Ubidecarenone [Co Q-10] 200 mg PO 1700 04/22/20 08/06/20 Vitamin E 450 unit PO DAILY 04/22/20 08/06/20 lisinopriL 20 mg PO DAILY 04/22/20 08/06/20 Multivitamins, Thera [Multivitamin 1 tab PO DAILY 05/01/20 08/06/20 (formulary)] Simvastatin [Zocor] 20 mg PO 1700 05/01/20 08/06/20 Magnesium 250 mg PO HS 06/12/20 08/06/20 Previous Rx's Medication Instructions Recorded Meloxicam [Mobic] 7.5 mg PO DAILY #30 tab 06/19/20 Allergies Allergy/AdvReac Type Severity Reaction Status Date / Time hydromorphone HCl Allergy Nausea & Verified 06/02/23 19:30 [From Dilaudid] Vomiting sulfamethoxazole Allergy Rash/Hives Verified 06/02/23 19:30 [From Bactrim] trimethoprim [From Bactrim] Allergy Rash/Hives Verified 06/02/23 19:30 Review of Systems ROS Statement: Those systems with pertinent positive or pertinent negative responses have been documented in the HPI. ROS Other: All systems not noted in ROS Statement are negative. Past Medical History Past Medical History: GERD/Reflux, Hyperlipidemia, Hypertension Additional Past Medical History / Comment(s): Hx fx ribs & pneumothorax (fall 2014), diverticulosis, thyroid nodules,hx rich-acuña, stool incontinence, feet fall asleep-mostly left foot & it is painful., fibrocystic breasts-painful to lie prone. History of Any Multi-Drug Resistant Organisms: None Reported Past Surgical History: Breast Surgery, Hysterectomy, Orthopedic Surgery Additional Past Surgical History / Comment(s): Rectocele, cystocele (after hyst erectomy infection.), dayami rotator cuff.,. Hx. Benign excisional bx bilateral breasts, core bx, cyst aspirations Past Anesthesia/Blood Transfusion Reactions: Postoperative Nausea & Vomiting (PONV) Past Psychological History: No Psychological Hx Reported Smoking Status: Never smoker Past Alcohol Use History: None Reported Past Drug Use History: None Reported - Past Family History Mother Family Medical History: No Reported History General Exam Limitations: no limitations General appearance: alert, in no apparent distress Head exam: Present: atraumatic Eye exam: Present: normal appearance. Absent: scleral icterus, conjunctival injection, periorbital swelling Neck exam: Absent: meningismus Respiratory exam: Absent: respiratory distress, accessory muscle use Cardiovascular Exam: Present: regular rate, normal rhythm GI/Abdominal exam: Present: soft, tenderness (diffuse), normal bowel sounds. Absent: distended, guarding, rebound, rigid Extremities exam: Present: normal capillary refill. Absent: pedal edema Neurological exam: Present: alert, oriented X3 Psychiatric exam: Present: normal affect, normal mood Skin exam: Present: warm, dry, normal color. Absent: cyanosis, diaphoretic, pallor Course Vital Signs 06/02/23 06/02/23 06/03/23 19:30 23:35 01:34 Temperature 98.3 F 98.4 F Pulse Rate 97 80 18 L Respiratory 18 20 66 H Rate Blood Pressure 144/77 165/87 156/85 O2 Sat by Pulse 94 L 98 96 Oximetry Medical Decision Making - Medical Decision Making Was pt. sent in by a medical professional or institution (, PA, WILDLIFE FORENSIC GENETICIST, urgent care, hospital, or care home...) When possible be specific @ -No Did you speak to anyone other than the patient for history (EMS, parent, family, police, friend...)? What history was obtained from this source @ -No Did you review nursing and triage notes (agree or disagree)? Why? @ -I reviewed and agree with nursing and triage notes Were old charts reviewed (outside hosp., previous admission, EMS record, old EKG, old radiological studies, urgent care reports/EKG's, care home records)? Report findings @ -No old charts were reviewed Differential Diagnosis (chest pain, altered mental status, abdominal pain women, abdominal pain men, vaginal bleeding, weakness, fever, dyspnea, syncope, headache, dizziness, GI bleed, back pain, seizure, CVA, palpatations, mental health, musculoskeletal)? @ -Differential Abdominal Pain Women: Appendicitis, Cholecystitis, diverticulosis, ischemic bowel, pancreatitis, hepatitis, UTI, gastroenteritis, AAA, incarcerated hernia, bowel obstruction, constipation, inflammatory bowel, hepatitis, peptic ulcer disease, splenic infarction, perforated viscus, vulvitis, ovarian torsion, PID, kidney stone, placenta abruption, this is not meant to be an all-inclusive list EKG interpreted by me (3pts min.). @ -yes EKG performed by triage nurse, interpreted by me shows sinus rhythm with a ventricular rate of 73, IN interval 0.169, QRS 0.93, QTC 0.414, normal axis X-rays interpreted by me (1pt min.). @ -None done CT interpreted by me (1pt min.). @ -no U/S interpreted by me (1pt. min.). @ -None done What testing was considered but not performed or refused? (CT, X-rays, U/S, labs)? Why? @ -None What meds were considered but not given or refused? Why? @ -None Did you discuss the management of the patient with other professionals (professionals i.e. , PA, WILDLIFE FORENSIC GENETICIST, lab, RT, psych nurse, mental health social worker, resource specialist, teacher, state highway police officer, telephonic nurse case manager)? Give summary @ -No Was smoking cessation discussed for >3mins.? @ -No Was critical care preformed (if so, how long)? @ -No Were there social determinants of health that impacted care today? How? (Homelessness, low income, unemployed, alcoholism, drug addiction, transportation, low edu. Level, literacy, decrease access to med. care, correction, rehab)? @ -No Was there de-escalation of care discussed even if they declined (Discuss DNR or withdrawal of care, Hospice)? DNR status @ -No What co-morbidities impacted this encounter? (DM, HTN, Smoking, COPD, CAD, Cancer, CVA, ARF, Chemo, Hep., AIDS, mental health diagnosis, sleep apnea, morbid obesity)? @ -History of hypertension, hyperlipidemia, GERD, diverticulosis, surgical history of rectocele, cystocele and hysterectomy Was patient admitted / discharged? Hospital course, mention meds given and route, prescriptions, significant lab abnormalities, going to OR and other pertinent info. @ -Discharged 72-year-old female presents to the emergency room with abdominal pain that started around 3:00 this afternoon. Patient states that yesterday she had 2 episodes of vomiting. Today was vomiting most of the day, undigested food. Denies any fevers. EMS did give Zofran with relief of her nausea. She does have a history of total hysterectomy, rectocele and cystocele surgeries. GERD, hypertension and anxiety. Denies any chest pain or shortness of breath. Vital signs are stable, afebrile. Patient states that while waiting in the emergency room she had a very large bowel movement with some relief in her symptoms. States she is concerned for a bowel obstruction. Abdomen is soft and nontender. EKG performed by triage nurse, interpreted by me shows sinus rhythm with a ventricular rate of 73, IN interval 0.169, QRS 0.93, QTC 0.414, normal axis Labs show no evidence of leukocytosis. Hemoglobin and hematocrit are stable. Electrolytes show blood glucose of 187. Lactic acidosis of 3.0. Patient given 1 L of IV fluids. Patient states pain feels much better down to a 3 out of 10 after 2 large bowel movements in the emergency room. She was also given Pepcid, Toradol and morphine for discomfort abdominal cramping. CT shows diffuse thickening throughout the descending colon. Some inflammatory changes adjacent to the distal colon. Correlate for colitis or mild diverticulitis. Follow-up colonoscopy is recommended to evaluate for an underlying mass. Patient was notified of her CT results and recommended to have another colonoscopy. Patient states she will never have another colonoscopy due to complications with the prep. I advised her to discuss this with her primary care doctor. I did explain that there may be an underlying mass that should be evaluated. Patient and family member will discuss this with her PCP Dr Macias. She was directed to continue her daily fiber and increase her fluid intake. Return to the emergency room with any new or concerning symptoms. Patient and family member agreeable to this plan of care. Case discussed with Dr Fierro. Undiagnosed new problem with uncertain prognosis? @ -No Drug Therapy requiring intensive monitoring for toxicity (Heparin, Nitro, Insulin, Cardizem)? @ -No Were any procedures done? @ -No Diagnosis/symptom? @ -Abdominal pain, constipation Acute, or Chronic, or Acute on Chronic? @ -Acute Uncomplicated (without systemic symptoms) or Complicated (systemic symptoms)? @ -Uncomplicated Side effects of treatment? @ -No Exacerbation, Progression, or Severe Exacerbation? @ -No Poses a threat to life or bodily function? How? (Chest pain, USA, NH, pneumonia, PE, COPD, DKA, ARF, appy, cholecystitis, CVA, Diverticulitis, Homicidal, Suicidal, threat to staff... and all critical care pts) @ -No - Lab Data Result diagrams: 06/02/23 19:36 06/02/23 19:36 Lab Results 06/02/23 06/02/23 06/02/23 Range/Units 19:36 19:36 22:32 WBC 7.7 (3.8-10.6) k/uL RBC 4.10 (3.80-5.40) m/uL Hgb 12.4 (11.4-16.0) gm/dL Hct 38.0 (34.0-46.0) % MCV 92.7 (80.0-100.0) fL MCH 30.3 (25.0-35.0) pg MCHC 32.7 (31.0-37.0) g/dL RDW 12.5 (11.5-15.5) % Plt Count 194 (150-450) k/uL MPV 8.2 Neutrophils % 71 % Lymphocytes % 20 % Monocytes % 5 % Eosinophils % 3 % Basophils % 0 % Neutrophils # 5.5 (1.3-7.7) k/uL Lymphocytes # 1.5 (1.0-4.8) k/uL Monocytes # 0.4 (0-1.0) k/uL Eosinophils # 0.2 (0-0.7) k/uL Basophils # 0.0 (0-0.2) k/uL Sodium 136 L (137-145) mmol/L Potassium 4.6 (3.5-5.1) mmol/L Chloride 106 (98-107) mmol/L Carbon Dioxide 22 (22-30) mmol/L Anion Gap 8 mmol/L BUN 20 H (7-17) mg/dL Creatinine 0.72 (0.52-1.04) mg/dL Est GFR (CKD-EPI)AfAm >90 (>60 ml/min/1.73 sqM) Est GFR (CKD-EPI)NonAf 84 (>60 ml/min/1.73 sqM) Glucose 187 H (74-99) mg/dL Lactic Ac Sepsis Rflx Plasma Lactic Acid Jhoan 3.0 H* (0.7-2.0) mmol/L Calcium 8.9 (8.4-10.2) mg/dL Total Bilirubin 0.4 (0.2-1.3) mg/dL AST 29 (14-36) U/L ALT 25 (4-34) U/L Alkaline Phosphatase 67 (38-126) U/L Total Protein 6.6 (6.3-8.2) g/dL Albumin 4.1 (3.5-5.0) g/dL Amylase 125 H (30-110) U/L Lipase 232 (23-300) U/L 06/02/23 Range/Units 23:22 WBC (3.8-10.6) k/uL RBC (3.80-5.40) m/uL Hgb (11.4-16.0) gm/dL Hct (34.0-46.0) % MCV (80.0-100.0) fL MCH (25.0-35.0) pg MCHC (31.0-37.0) g/dL RDW (11.5-15.5) % Plt Count (150-450) k/uL MPV Neutrophils % % Lymphocytes % % Monocytes % % Eosinophils % % Basophils % % Neutrophils # (1.3-7.7) k/uL Lymphocytes # (1.0-4.8) k/uL Monocytes # (0-1.0) k/uL Eosinophils # (0-0.7) k/uL Basophils # (0-0.2) k/uL Sodium (137-145) mmol/L Potassium (3.5-5.1) mmol/L Chloride (98-107) mmol/L Carbon Dioxide (22-30) mmol/L Anion Gap mmol/L BUN (7-17) mg/dL Creatinine (0.52-1.04) mg/dL Est GFR (CKD-EPI)AfAm (>60 ml/min/1.73 sqM) Est GFR (CKD-EPI)NonAf (>60 ml/min/1.73 sqM) Glucose (74-99) mg/dL Lactic Ac Sepsis Rflx Y Plasma Lactic Acid Jhoan (0.7-2.0) mmol/L Calcium (8.4-10.2) mg/dL Total Bilirubin (0.2-1.3) mg/dL AST (14-36) U/L ALT (4-34) U/L Alkaline Phosphatase (38-126) U/L Total Protein (6.3-8.2) g/dL Albumin (3.5-5.0) g/dL Amylase (30-110) U/L Lipase (23-300) U/L - EKG Data -: EKG Interpreted by Me EKG shows normal: sinus rhythm (EKG interpreted by me shows sinus rhythm with a ventricular rate of 73, IN interval 0.169, QRS 0.93, QTC 0.414, normal axis) Disposition Clinical Impression: Constipation, Abdominal pain Disposition: HOME SELF-CARE Condition: Good Instructions (If sedation given, give patient instructions): Constipation (ED), Abdominal Pain (ED) Additional Instructions: Increase your fluid intake. Continue Benefiber daily. Follow-up with the primary care doctor this week and discuss the CT scan results. Radiologist does recommend having a colonoscopy to evaluate for possible mass. Return to the emergency room with any new or concerning symptoms. Is patient prescribed a controlled substance at d/c from ED?: No Referrals: Hui Macias MD [Primary Care Provider] - 1-2 days Time of Disposition: 01:30
--- NOTE | 2023-06-02 22:40 | CT ---
EXAMINATION TYPE: CT abdomen pelvis w con DATE OF EXAM: 06/02/2023 COMPARISON: 04/19/2020 INDICATION: mid to lower abdominal pain DLP: 771.6 mGycm, Automated exposure control for dose reduction was used. CONTRAST: 90ml mL of Isovue 300. Study performed without Oral Contrast TECHNIQUE: Axial images were obtained from above the diaphragm to the pubic rami in the axial plane a t 5 mm thick sections. Reconstructed images are reviewed on the computer in the coronal plane. FINDINGS: Limited CT sections are obtained the lung bases. The lung bases are clear. CT ABDOMEN: Liver: Normal Spleen: Normal Pancreas: Normal Adrenal glands: The adrenal glands are normal. Gallbladder: Normal Kidneys: No masses are evident. No hydronephrosis is present. No cysts are present. Delayed images were obtained through the kidneys, which remain unremarkable. Aorta: Vascular calcification is within the aorta. Inferior vena cava: Normal. CT PELVIS: Loops of bowel within the abdomen and pelvis are normal. Scattered diverticula sigmoid colon. The d istal descending colon and some mild inflammatory change adjacent. Correlate for mild acute diverticu litis. Some wall thickening may be present. Follow-up colonoscopy is recommended to evaluate for unde rlying mass. This study is without oral contrast which limits bowel evaluation. Appendix: Normal as visualized. Urinary bladder: Normal. Genitourinary structures: Uterus is not identified. Adnexa are unremarkable Osseous structures: No suspicious lytic or sclerotic lesions. IMPRESSIONS: 1. Diffuse thickening through the descending colon. Some inflammatory changes adjacent to the distal colon. Correlate for colitis or acute mild diverticulitis. Follow-up is recommended, underlying mass should be considered
[2023-06-02] MEDS ORDERED: MORPHINE SULFATE 4 MG/ML SYRINGE IVP STA (23:17)
[2023-06-02] MEDS ORDERED: SODIUM CHLORIDE 0.9% 1,000 ML IV ONE (23:27)
[2023-06-03 01:35] VITALS: BP 156/85; PULSE 18; RESP 66; TEMP 98.4
== END 2023-06-03 01:45 | disposition home or self-care (01) ==
LOC: EC 19:14
DX: K59.00 Constipation, unspecified (principal); R10.9 Unspecified abdominal pain; K21.9 Gastro-esophageal reflux disease without esophagitis; E78.5 Hyperlipidemia, unspecified; I10 Essential (primary) hypertension; Z88.2 Allergy status to sulfonamides; Z88.5 Allergy status to narcotic agent; Z79.899 Other long term (current) drug therapy
CPT/HCPCS: 80053; 82150; 83605; 83690; 85025; 74177; 99285; 96374; 96375 ×2; 96361 ×2; J2270; J1885; Q9967; 36415; 93005

== ENCOUNTER → 2023-09-30 | Outpatient (CLI) | payer MEDICARE, OTHER ==
--- NOTE | 2023-10-01 09:42 | MM ---
Reason for Exam: Screening (asymptomatic). Last screening mammogram was performed 12 month(s) ago. Patient History: Menarche at age 15. First Full-Term at age 20. Left ovary removed at age 53. Right ovary removed at age 53. Hysterectomy at age 53. Postmenopausal. Estrogen for 6 months until age 55. Progesterone, starting at age 60 for 1 year. Cyst Aspiration on the Right side. Core Biopsy on the Right side. Excisional Biopsy on the Right side. Excisional Biopsy on the Left side. Excisional Biopsy on the Left side. 09/19/2019, Benign Core Biopsy on the left side. 04/07/2005, Benign Ultrasound-Guided Core Biopsy on the right side. Paternal grandmother had breast cancer, age 90. Risk Values: Shira 5 year model risk: 2.2%. NCI Lifetime model risk: 5.0%. Prior Study Comparison: 09/23/2020 Bilateral Screening Mammogram, [facility]. 09/26/2021 Bilateral Screening Mammogram, [facility]. 09/29/2022 Bilateral MG 3D screening mammo w/cad, [facility]. Tissue Density: The breast tissue is heterogeneously dense. This may lower the sensitivity of mammography. Findings: Analyzed By CAD. Left breast biopsy clip. There is no suspicious group of microcalcifications or new suspicious mass. Benign-appearing calcifications bilaterally. Overall Assessment: Benign, BI-RAD 2 Management: Screening Mammogram of both breasts in [address] [facility] will attempt to contact patient to return for supplemental views and ultrasound if indicated. Patient should continue monthly self-breast exams. A clinical breast exam by your physician is recommended on an annual basis. This exam should not preclude additional follow-up of suspicious palpable abnormalities. Note on Shira scores and lifetime risk: 1. A Shira score greater than 3% is considered moderate risk. If this is the case, consider specialist referral to assess eligibility for a risk reducing agent. 2. If overall lifetime risk for the development of breast cancer is 20% or higher, the patient may qualify for future screening with alternating mammogram and breast MRI. Electronically signed and approved by: Chandrakant Carrasco DO
== END | disposition home or self-care (01) ==
LOC: RADMAMWWP 10:09
PROVIDERS: ATTEND Obstetrics & Gynecology
DX: Z12.31 Encounter for screening mammogram for malignant neoplasm of breast (principal); Z78.0 Asymptomatic menopausal state; Z80.3 Family history of malignant neoplasm of breast; Z90.721 Acquired absence of ovaries, unilateral
CPT/HCPCS: 77063; 77067

== ENCOUNTER → 2023-10-05 | Outpatient (CLI) | payer MEDICARE, OTHER ==
--- NOTE | 2023-10-05 16:36 | XR ---
EXAMINATION TYPE: XR wrist complete RT, XR hand complete RT DATE OF EXAM: 10/05/2023 1:27 PM CLINICAL INDICATION:Female, 73 years old with history of M79.641; COMPARISON: None TECHNIQUE: XR wrist complete RT, XR hand complete RT; examined in the Frontal, navicular, lateral, a nd oblique. FINDINGS: No acute osseous pathology, joint dislocation, or joint effusion. No evidence of any soft tissue swelling is seen. Multifocal degeneration changes with joint space narrowing and osteophyte fo rmation. No radiographic finding in the lateral side of the wrists to correlate patient's pain. IMPRESSION: 1. No acute osseous pathology. 2. 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
== END | disposition home or self-care (01) ==
LOC: RADXRMAIN 13:01
PROVIDERS: ATTEND Internal Medicine
DX: M19.031 Primary osteoarthritis, right wrist (principal); M19.041 Primary osteoarthritis, right hand

== ENCOUNTER → 2024-03-27 | Outpatient (CLI) | payer MEDICARE, OTHER ==
--- NOTE | 2024-03-27 13:20 | XR ---
EXAMINATION TYPE: XR chest 2V, XR ribs bilateral DATE OF EXAM: 03/27/2024 1:04 PM CLINICAL INDICATION:Female, 73 years old with history of R07.81 rib pain; [facility] COMPARISON: Same day TECHNIQUE: XR chest 2V, XR ribs bilateral Frontal and lateral views of the chest. Frontal and oblique images of the bilateral ribs. FINDINGS: Lungs/Pleura: There is no evidence of pleural effusion, focal consolidation, or pneumothorax. Pulmonary vascularity: Unremarkable. Heart/mediastinum: Cardiomediastinal silhouette is unremarkable. Musculoskeletal: No acute osseous pathology. Bilateral shoulder rotator cuff repair anchors. No corti maria elena step-off to suggest acute fracture of the ribs. There is chondrocalcinosis present limits evaluat ion. Possible remote right-sided rib injuries suggested callus formation Other findings: None IMPRESSION: 1. No acute cardiopulmonary disease/process. 2. No definitive acute rib injury.
== END | disposition home or self-care (01) ==
LOC: RADXRMAIN 12:29
PROVIDERS: ATTEND Internal Medicine
DX: R07.81 Pleurodynia (principal)
CPT/HCPCS: 71046; 71110

== ENCOUNTER → 2024-04-18 | Outpatient (CLI) | payer MEDICARE, OTHER ==
[2024-04-18 15:05] LABS: African American GFR (CKD) 71 (>60 ml/min/1.73 sqM); Blood Urea Nitrogen 19 mg/dL (7-17); Non-African American GFR(CKD) 62 (>60 ml/min/1.73 sqM)
--- NOTE | 2024-04-19 16:08 | CT ---
EXAMINATION TYPE: CT chest abdomen w con CT DLP: 542 mGycm, Automated exposure control for dose reduction was used. DATE OF EXAM: 04/18/2024 4:02 PM COMPARISON: None. CLINICAL INDICATION:Female, 73 years old with history of R07.81,R05.8; PH[facility], right sided abdominal/joanne st/rib pain Technique: CT chest abdomen w con; Multiple axial images were obtained. Two-dimensional coronal and s agittal reconstructions were obtained. Contrast used:100ml mL of Isovue 300 with IV Contrast, Oral contrast used: with Oral Contrast Findings: CHEST: LUNGS/ PLEURA: The lung parenchyma appears unremarkable. AIRWAY: Patent and unremarkable. HEART: Size within normal limits. MEDIASTINUM: No gross evidence of adenopathy. VASCULATURE: No aortic aneurysm. MUSCULOSKELETAL: Possible healed versus new nondisplaced right seventh rib fracture laterally SOFT TISSUES/LYMPH NODES: Unremarkable. LOWER NECK: No significant findings. ABDOMEN: ABDOMEN LIVER: Unremarkable GALLBLADDER AND BILE DUCTS: Empty but otherwise unremarkable. PANCREAS: Unremarkable. SPLEEN: Unremarkable. ADRENAL GLANDS: Unremarkable. KIDNEYS AND URETERS: No evidence of hydronephrosis or renal calculus. The ureters are unremarkable. STOMACH AND BOWEL: Stomach and duodenum are unremarkable. No evidence of bowel obstruction. PERITONEUM: No evidence of pneumoperitoneum or free fluid. VASCULATURE: No evidence of aortic aneurysm. MUSCULOSKELETAL: No acute osseous abnormalities LYMPH NODES: No gross evidence for lymphadenopathy. SOFT TISSUE/ABDOMINAL WALL: Unremarkable IMPRESSION: Possible nondisplaced right seventh rib fracture. No acute process in the abdomen is recognized
== END | disposition home or self-care (01) ==
LOC: RADCTMAIN 14:24
PROVIDERS: ATTEND Internal Medicine
DX: R07.81 Pleurodynia (principal); R05.8 Other specified cough
CPT/HCPCS: 82565; 84520; 71260; 74160; 36415; Q9967

== ENCOUNTER → 2024-07-18 | Outpatient (CLI) | payer MEDICARE, OTHER ==
--- NOTE | 2024-07-18 10:27 | MM ---
Reason for Exam: Clinical finding. Last screening mammogram was performed 10 month(s) ago. Patient History: Menarche at age 15. First Full-Term at age 20. Left ovary removed at age 53. Right ovary removed at age 53. Hysterectomy at age 53. Postmenopausal. Estrogen for 6 months until age 55. Progesterone, starting at age 60 for 1 year. Cyst Aspiration on the Right side. Core Biopsy on the Right side. Excisional Biopsy on the Right side. Excisional Biopsy on the Left side. Excisional Biopsy on the Left side. 09/19/2019, Benign Core Biopsy on the left side. 04/07/2005, Benign Ultrasound-Guided Core Biopsy on the right side. Paternal grandmother had breast cancer, age 90. Risk Values: Shira 5 year model risk: 2.2%. NCI Lifetime model risk: 5.0%. Tissue Density: There are scattered areas of fibroglandular density. Findings: Analyzed By CAD. No new suspicious masses, calcifications or distortions. Left breast biopsy clip. Benign appearing consultations right breast. Overall Assessment: Benign, BI-RAD 2 Management: Screening Mammogram of both breasts in 1 year. Results were given to the patient verbally at the time of exam. Patient should continue monthly self-breast exams. A clinical breast exam by your physician is recommended on an annual basis. This exam should not preclude additional follow-up of suspicious palpable abnormalities. Note on Shira scores and lifetime risk: 1. A Shira score greater than 3% is considered moderate risk. If this is the case, consider specialist referral to assess eligibility for a risk reducing agent. 2. If overall lifetime risk for the development of breast cancer is 20% or higher, the patient may qualify for future screening with alternating mammogram and breast MRI. Electronically signed and approved by: Chandrakant Carrasco DO
== END | disposition home or self-care (01) ==
LOC: RADMAMWWP 10:01
PROVIDERS: ATTEND Internal Medicine
DX: R92.8 Other abnormal and inconclusive findings on diagnostic imaging of breast (principal); Z78.0 Asymptomatic menopausal state; Z90.722 Acquired absence of ovaries, bilateral; Z80.3 Family history of malignant neoplasm of breast; R92.323 Mammographic fibroglandular density, bilateral breasts
CPT/HCPCS: 77062; 77066

== ENCOUNTER → 2025-04-30 | Outpatient (CLI) | payer MEDICARE, OTHER ==
--- NOTE | 2025-04-30 14:45 | XR ---
EXAMINATION TYPE: XR lumbar spine 2 or 3V DATE OF EXAM: 04/30/2025 2:28 PM COMPARISON: None. CLINICAL INDICATION: Female, 74 years old with history of M54.50 LOW BACK PAIN, UNSPECIFIED, pain TECHNIQUE: 3 view(s) obtained. FINDINGS: There are 4 lumbar type vertebral bodies. L1 may be transitional with ribs present. Spondylosis is pr esent. There is diffuse loss of disc height through the lumbar spine. The L4-5 level appears to have a minimal grade 1 spondylolisthesis. There is loss of disc height with vacuum disc phenomenon present at L5-S1. Minimal retrolisthesis is not excluded. There is degenerative disc changes posteriorly at L3-4 and diffusely at L2-3 and L1-2. IMPRESSION: 1. Degenerative disc changes throughout the lumbar spine greatest at L5-S1. 2. Mild retrolisthesis of L5 posterior on S1 and minimal anterolisthesis of L4 and L5. 3. Suspected transitional L1 vertebral level with ribs. Plain film correlation recommended prior to s urgical intervention. [facility], , 04/30/2025 2:42 PM
== END | disposition home or self-care (01) ==
LOC: RADXRMAIN 14:13
PROVIDERS: ATTEND Internal Medicine
DX: M43.16 Spondylolisthesis, lumbar region (principal); M47.816 Spondylosis without myelopathy or radiculopathy, lumbar region; M47.817 Spondylosis without myelopathy or radiculopathy, lumbosacral region; M51.360 Other intervertebral disc degeneration, lumbar region with discogenic back pain only
CPT/HCPCS: 72100

== ENCOUNTER → 2025-05-02 | Outpatient (CLI) | payer MEDICARE, OTHER ==
--- NOTE | 2025-05-02 12:49 | XR ---
EXAMINATION TYPE: XR ribs bilateral DATE OF EXAM: 05/02/2025 10:56 AM COMPARISON: None. CLINICAL INDICATION: Female, 74 years old with history of R07.81 Rib pain, pain TECHNIQUE: 2 view(s) obtained bilateral ribs. FINDINGS: Costochondral cartilage calcification is noted. No acute fractures are evident. No pneumothorax is ev ident on these images. IMPRESSION: 1. No acute osseous abnormality bilateral ribs. Follow-up can be performed as clinically indicated. [facility], , 05/02/2025 12:46 PM
== END | disposition home or self-care (01) ==
LOC: RADXRMAIN 10:25
PROVIDERS: ATTEND Internal Medicine
DX: R07.81 Pleurodynia (principal)
CPT/HCPCS: 71110

== ENCOUNTER → 2025-06-01 | Outpatient (CLI) | payer MEDICARE, OTHER ==
--- NOTE | 2025-06-01 16:04 | US ---
EXAMINATION TYPE: US thyroid st tissue head/neck DATE OF EXAM: 06/01/2025 COMPARISON: US thyroid 04/06/2023, 09/29/2022, 06/19/2021 CLINICAL INDICATION: Female, 74 years old with history of E04.1 NONTOXIC SINGLE THYROID NODULE; F/U n odules TECHNIQUE: Grayscale and color Doppler imaging of the thyroid gland. FINDINGS: GLAND SIZE: Right Lobe: 3.2 x 1.6 x 1.5 cm Overall Parenchyma: heterogeneous Left Lobe: 3.2 x 1.6 x 1.5 cm Overall Parenchyma: heterogeneous Isthmus Thickness: 0.2 cm NODULES RIGHT: # of nodules measured on right: 1 1. 0.6 X 0.5 x 0.7 cm, lower, solid or almost completely solid, hypoechoic nodule, which is wider t ayala tall, with ill-defined margins, without echogenic foci. TR 4. Prior size: 0.9 x 0.7 x 1.0 cm LEFT: # of nodules measured on left: 1 1. 0.7 X 0.4 x 0.6 cm, mid , solid or almost completely solid, hypoechoic nodule, which is wider th an tall, with ill-defined margins, without echogenic foci. TR 4. Prior size: 0.6 x 0.5 x 0.5 cm ISTHMUS: # of nodules measured in the isthmus: 0 Bilateral neck scanned, no evidence of lymphadenopathy. Multiple sub-centimeter nodules bilaterally, largest in each lobe measured, essentially unchanged when compared to prior. IMPRESSION: Overall stable examination with multiple subcentimeter thyroid nodules. No enlarging thyroid nodules identified. Highest TI-RADS level nodule reported: ACR TI-RADS LEVEL: TI-RADS 4: Follow if > 1 cm, FNA if > 1.5 cm TI-RADS assessment score and recommendation for follow-up based on appropriate scoring and treatment protocols. TR1 Benign No FNA TR2 Not suspicious No FNA TR3: If nodule size is ? 2.5 cm, FNA is recommended. If nodule size is ? 1.5 cm, follow-up imaging at 1, 3, and 5 years is recommended. TR4: If nodule size is ? 1.5 cm, FNA is recommended. If nodule size is ? 1.0 cm, follow-up imaging at 1, 2, 3, and 5 years is recommended. TR5: If nodule size is ? 1.0 cm, FNA is recommended. If nodule size is ? 0.5 cm, annual follow-up for up to 5 years is recommended. TR 1 thyroid nodules have a 0.3 % risk of malignancy. TR 2 thyroid nodules have a 1.5 % risk of malignancy. TR 3 thyroid nodules have a 4.8 % risk of malignancy. TR 4 thyroid nodules have a 9.1 % risk of malignancy. TR 5 thyroid nodules have a 35 % risk of malignancy. [email or web address] [facility], , 06/01/2025 4:02 PM
== END | disposition home or self-care (01) ==
LOC: RADUSWWP 15:21
PROVIDERS: ATTEND Internal Medicine
DX: E04.2 Nontoxic multinodular goiter (principal)
CPT/HCPCS: 76536